=== PATIENT | male | born 1970 | race Caucasian/White ===

== ENCOUNTER 2024-12-22 13:49 | Emergency (ER) | payer OTHER ==
--- NOTE | 2024-12-22 15:19 | RAD REPORT ---
EXAM: Right upper quadrant ultrasound. CLINICAL HISTORY: Abdominal pain COMPARISON: None FINDINGS: A gallstone is not seen. Gallbladder wall not thickened. Biliary tree normal caliber IMPRESSION: No significant abnormalities displayed
[2024-12-22 15:26] LABS: Absolute Eosinophils 0.1 K/uL (0-0.5); Absolute Lymphocytes (CBC) 1.5 K/uL (0.7-4.9); Absolute Monocytes 0.7 K/uL (0.1-1.3); Absolute Neutrophil 3.7 K/uL (1.8-8.0); Albumin 3.6 g/dL (3.4-5.0); Albumin/Globulin Ratio 0.9 (1.1-1.8); Anion Gap 7.6 mEq/L (5.0-15.0); Basophils % 0.4 % (0-1.3); Bilirubin Total 0.6 mg/dL (0.2-1.0); Eosinophils % 1.4 % (0-4.4); Globulin 3.9 g/dL (2.3-3.5); Hematocrit 47.9 % (39.6-49.0); Hemoglobin 16.8 g/dL (13.6-17.9); Lymphocytes % 25.7 % (15.3-44.8); MCHC 35.1 g/dL (32.0-36.0); MCV 88.3 fL (80-100); MPV 7.9 fL (7.6-11.3); Monocytes % 11.1 % (3.3-12.3); Neutrophils % 61.4 % (41.7-73.7); Nucleated Red Blood Cells % 0.1 % (0-0); Platelets 196 thou/uL (152-406); Protein, Total 7.5 g/dL (6.4-8.2); RBC Red Blood Cell Count 5.42 M/uL (4.33-5.43); Red Cell Distribution Width 14.1 % (12.1-15.2)
[2024-12-22 15:30] LABS: Potassium 4.6 mEq/L (3.5-5.1)
[2024-12-22] MEDS ORDERED: MAGNES/ALUMIN/SIMET 30ML UCUP ONE (16:46)
[2024-12-22] MEDS ORDERED: LIDOCAINE VISCOUS 2% 10ML ORAL SOLN ONE (16:46)
[2024-12-22] MEDS ORDERED: FAMOTIDINE 20 MG/2 ML VIAL IV ONE (16:47)
--- NOTE | 2024-12-22 16:48 | ER ---
Nurse's Notes [facility] Name: Enrike Whitaker Jr Age: 54 yrs Sex: Male : 1970 Arrival Date: 12/22/2024 Time: 13:49 Bed 25 Private MD: Diagnosis: Acute gastritis without bleeding;Esophagitis, unspecified Presentation: 12/22 14:26 Chief complaint: Nausea and upper abdominal pain that is worse after eating x months. hb Coronavirus screen: At this time, the client does not indicate any symptoms associated with coronavirus-19. Ebola Screen: No symptoms or risks identified at this time. Initial Sepsis Screen: Does the patient meet any 2 criteria? No. Patient's initial sepsis screen is negative. Does the patient have a suspected source of infection? No. Patient's initial sepsis screen is negative. Risk Assessment: Do you want to hurt yourself or someone else? Patient reports no desire to harm self or others. Onset of symptoms was October 2024. 14:26 Method Of Arrival: Ambulatory hb 14:26 Acuity: OCTAVIO 3 hb Historical: - Allergies: 14:26 No Known Allergies; hb - Immunization history:: Adult Immunizations up to date. - Infectious Disease History:: Denies. - Family history:: not pertinent. - Hospitalizations: : No recent hospitalization is reported. Screenin:57 [facility] ED Fall Risk Assessment (Adult) History of falling in the last 3 months, jb4 including since admission No falls in past 3 months (0 pts) Confusion or Disorientation No (0 pts) Intoxicated or Sedated No (0 pts) Impaired Gait No (0 pts) Mobility Assist Device Used No (0 pt) Altered Elimination No (0 pt) Score/Fall Risk Level 0 - 2 = Low Risk Oriented to surroundings, Maintained a safe environment. Abuse screen: Denies threats or abuse. Nutritional screening: No deficits noted. Tuberculosis screening: No symptoms or risk factors identified. Assessment: 16:57 General: Appears in no apparent distress. comfortable, Behavior is calm, cooperative, jb4 appropriate for age. Pain: Complains of pain in abdomen Pain does not radiate. Pain currently is 6 out of 10 on a pain scale. Neuro: Level of Consciousness is awake, alert, obeys commands, Oriented to person, place, time, situation. Cardiovascular: Patient's skin is warm and dry. Respiratory: Airway is patent Respiratory effort is even, unlabored, Respiratory pattern is regular, symmetrical. GI: Abdomen is round non-distended, Reports lower abdominal pain, upper abdominal pain. : No signs and/or symptoms were reported regarding the genitourinary system. Derm: Skin is intact, Skin is pink, warm \T\ dry. Musculoskeletal: Circulation, motion, and sensation intact. Range of motion: intact in all extremities. Vital Signs: 14:27 BP 180 / 108; Pulse 106; Resp 18; Temp 97.7; Pulse Ox 100% on R/A; Weight 127.01 kg; hb Height 5 ft. 11 in. ; Pain 10/10; 14:27 Body Mass Index 39.05 (127.01 kg, 180.34 cm) hb 14:27 Pain Scale: Adult hb ED Course: 13:54 Patient arrived in ED. al6 14:00 Feroz Borrego MD is Attending Physician. rn 14:26 Triage completed. hb 14:28 Arm band placed on. hb 14:51 US Abdomen Limited In Process Unspecified. EDMS 15:03 Initial lab(s) drawn, by me, sent to lab. Inserted saline lock: 20 gauge in left wrist, zm using aseptic technique. Blood collected. Flushed with 10 mL NS. 15:03 CBC with Diff Sent. zm 15:03 CMP Sent. zm 15:03 Lipase Sent. zm 16:57 Patient has correct armband on for positive identification. Bed in low position. Call jb4 light in reach. Side rails up X 1. Provided Education on: discharge instructions.. 16:57 No provider procedures requiring assistance completed. IV discontinued, intact, jb4 bleeding controlled, No redness/swelling at site. Pressure dressing applied. Administered Medications: 16:59 Drug: GI Cocktail without - (Maalox PO 30 ml, Lidocaine Mucous Membrane 2 % 15 jb4 ml) PO once Route: PO; 16:59 Follow up: Response: Medication administered at discharge. jb4 16:59 Drug: Famotidine IVP 20 mg IVP once; dilute with 10 mL 0.9% NaCl; give over 2 minutes jb4 Route: IVP; Site: left hand; 16:59 Follow up: Response: Medication administered at discharge. jb4 Medication: 16:57 VIS not applicable for this client. jb4 Outcome: 16:47 Discharge ordered by . rn 16:57 Discharged to home ambulatory, jb4 16:57 Condition: stable 16:57 Discharge instructions given to patient, Instructed on discharge instructions, follow up and referral plans. medication usage, Demonstrated understanding of instructions, follow-up care, medications, Prescriptions given X 1, 16:59 Patient left the ED. jb4 Signatures: Dispatcher [employer] EDMS Feroz Borrego MD MD rn Baxter, Heather, RN RN hb Bryson, James, RN RN jb4 Aracelis Nash Alissa al6 Corrections: (The following items were deleted from the chart) 14:30 14:27 BP 180 / 108; Pulse 106bpm; Resp 18bpm; Pulse Ox 100% RA; Temp 97.7F; hb hb
--- NOTE | 2024-12-22 16:48 | EDPHYS ---
Physician Documentation [facility] Name: Enrike Whitaker Jr Age: 54 yrs Sex: Male : 1970 Arrival Date: 12/22/2024 Time: 13:49 Bed 25 Private MD: ED Physician Feroz Borrego HPI: 12/22 15:43 This 54 yrs old Male presents to ER via Ambulatory with complaints of Abdominal Pain. rn 15:43 The patient presents with abdominal pain in the epigastric area. Onset: The rn symptoms/episode began/occurred 2 month(s) ago. The symptoms do not radiate. Associated signs and symptoms: Pertinent positives: nausea, Pertinent negatives: blood in stools, chest pain, fever, shortness of breath, vomiting, vomiting blood. The symptoms are described as achy, burning. Modifying factors: The symptoms are alleviated by nothing, the symptoms are aggravated by food. Severity of pain: At its worst the pain was mild in the emergency department the pain is unchanged. The patient has experienced similar episodes in the past. Patient reports 2 months of upper epigastric abdominal pain. Recently saw GI with upper scope that showed gastritis and esophagitis. GI ordered outpatient ultrasound of gallbladder and patient was not able to obtain due to insurance issues. Came to hospital here to try and get ultrasound completed and they directed him to the emergency room. Denies fever or chills. Reports pain in abdomen about an hour after eating. No vomiting or hematemesis. No blood in stool.. Historical: - Allergies: 14:26 No Known Allergies; hb - Immunization history:: Adult Immunizations up to date. - Infectious Disease History:: Denies. - Family history:: not pertinent. - Hospitalizations: : No recent hospitalization is reported. ROS: 15:43 Constitutional: Negative for fever, chills, and weight loss, Cardiovascular: Negative rn for chest pain, palpitations, and edema, Respiratory: Negative for shortness of breath, cough, wheezing, and pleuritic chest pain, Abdomen/GI: Positive for abdominal pain with nausea MS/Extremity: Negative for injury and deformity, Skin: Negative for injury, rash, and discoloration, Neuro: Negative for headache, weakness, numbness, tingling, and seizure, Exam: 15:43 Constitutional: This is a well developed, well nourished patient who is awake, alert, rn and in no acute distress. Cardiovascular: Regular rate and rhythm. No pulse deficits. Abdomen/GI: Soft, mild epigastric tenderness. No rebound or guarding. Negative Alvarez. No right upper quadrant tenderness Vital Signs: 14:27 BP 180 / 108; Pulse 106; Resp 18; Temp 97.7; Pulse Ox 100% on R/A; Weight 127.01 kg; hb Height 5 ft. 11 in. ; Pain 10/10; 14:27 Body Mass Index 39.05 (127.01 kg, 180.34 cm) hb 14:27 Pain Scale: Adult hb MDM: 14:00 Medical Screening Exam initiated rn 16:46 Differential diagnosis: cholecystitis, Cholelithiasis, gastritis, gastroesophageal rn reflux disease, non-specific abd pain, pancreatitis, Peptic Ulcer Disease. Data reviewed: vital signs, nurses notes, lab test result(s), radiologic studies, ultrasound, and as a result, I will discharge patient. Counseling: I had a detailed discussion with the patient and/or guardian regarding the historical points, exam findings, and any diagnostic results supporting the discharge/admit diagnosis, lab results, radiology results, the need for outpatient follow up, to return to the emergency department if symptoms worsen or persist or if there are any questions or concerns that arise at home. Response to treatment: the patient's symptoms have mildly improved after treatment, and as a result, I will discharge patient. Special discussion: Based on the patient's Hx, exam, and Dx evaluation, there is no indication for emergent surgery or inpatient Tx. It is understood by the patient/guardian that if the Sx's persist or worsen they need to return immediately for re-evaluation. I discussed with the patient/guardian in detail that at this point there is no indication for admission to the hospital. It is understood, however, that if the symptoms persist or worsen the patient needs to return immediately for re-evaluation. Based on the history and exam findings, there is no indication for further emergent testing or inpatient evaluation. I discussed with the patient/guardian the need to see the dewaxer for further evaluation of the symptoms. ED course: Ultrasound negative for cholecystitis or cholelithiasis. No acute findings and blood work. Already saw GI with EGD that showed gastritis/esophagitis. Will discharge home with Protonix and GI follow-up. Also spoke to patient at length regarding GERD, risk of cancer, and dietary modifications to improve symptoms.. 12/22 14:31 Order name: CBC with Diff; Complete Time: 15:42 rn 12/22 14:31 Order name: CMP; Complete Time: 15:42 rn 12/22 14:31 Order name: Lipase; Complete Time: 15:42 rn 12/22 14:31 Order name: US Abdomen Limited; Complete Time: 15:42 rn 12/22 14:31 Order name: IV Saline Lock; Complete Time: 15:03 rn 12/22 14:31 Order name: Labs collected and sent; Complete Time: 15:03 rn Administered Medications: 16:59 Drug: GI Cocktail without - (Maalox PO 30 ml, Lidocaine Mucous Membrane 2 % 15 jb4 ml) PO once Route: PO; 16:59 Follow up: Response: Medication administered at discharge. jb4 16:59 Drug: Famotidine IVP 20 mg IVP once; dilute with 10 mL 0.9% NaCl; give over 2 minutes jb4 Route: IVP; Site: left hand; 16:59 Follow up: Response: Medication administered at discharge. jb4 Disposition Summary: 12/22/24 16:47 Discharge Ordered Notes: Location: Home rn Problem: new rn Symptoms: have improved rn Condition: Stable rn Diagnosis - Acute gastritis without bleeding rn - Esophagitis, unspecified rn Followup: rn - With: Private Physician - When: As needed - Reason: Recheck today's complaints, Re-evaluation by your physician Discharge Instructions: - Discharge Summary Sheet rn - Esophagitis rn - Gastritis, Adult rn Forms: - Medication Reconciliation Form rn - Antibiotic yarn dyer - Prescription Opioid Use rn - Patient Portal Instructions rn - Leadership Thank You Letter rn Prescriptions: - Protonix 40 mg Oral Tablet - take 1 tablet ORAL route once daily; 30 tablet; Refills: 0, Product Selection rn Permitted Signatures: Dispatcher [employer] EDMS Feroz Borrego MD MD rn Baxter, Heather, RN RN hb Bryson, James, RN RN jb4 Corrections: (The following items were deleted from the chart) 14:32 14:32 CBC+H.LAB.BRZ ordered. EDMS EDMS 14:32 14:32 COMPREHENSIVE METABOLIC PANEL+C.LAB.BRZ ordered. EDMS EDMS 14:32 14:32 LIPASE+C.LAB.BRZ ordered. EDMS EDMS 14:32 14:32 Abdomen Limited+US.RAD.BRZ ordered. EDMS EDMS
[2024-12-22 17:47] VITALS: BP 180/108; TEMP 97.7; O2SAT 100
== END 2024-12-22 16:59 | disposition home or self-care (01) ==
LOC: ER 13:49
DX: K29.00 Acute gastritis without bleeding (principal); K20.90 Esophagitis, unspecified without bleeding
CPT/HCPCS: 36415; 76705; 80053; 83690; 85025; 96374; 99284

== ENCOUNTER 2025-03-02 14:16 | Emergency (ER) | payer OTHER ==
--- OUTSIDE RECORDS SUMMARY | 2025-03-02 14:21 | XMS REPORT | Continuity of Care Document ---
Author Name Unknown Address [address] [facility] [address] [place] [address] [facility] Address [address] [facility] [address] [place] [address] Care Team Providers Care Commissioned Police Officer Name Role Phone NIKKIMARIN Primary Care Physician Unavailab LUIS ALFREDO Kumari Attending Clinician UnavailYARI Seo Attending Clinician Unavailable Yari Soliman NP Attending Clinician [phone] JOAN CHE Attending Clinician Unavailab JOAN Oneil Attending Clinician Unavailab Joan Oneil DO Attending Clinician [phone] JAYLA THOMAS Attending Clinician Unavailable JAYLA THOMAS Attending Clinician Unavailable BERNA CASTAÑEDA Attending Clinician Unavailab Berna Graham DO Attending Clinician [phone] ADRI BACAHKelli Attending Clinician UnavailAdri Irizarry MD K.HKelli Attending Clinician + [phone] Pob, [facility] Main Attending Clinician Unavaildoretha bañuelos Doctor Unassigned, [place] Attending Clinician U CHARLES Riuz Attending Clinician Unavailable Charles Kaur NP Attending Clinician [phone] Brianna Rothman Attending Clinician [phone] BRIANNA ANTONIO Attending Clinician Unavailable YARI SOLIMAN Admitting Clinician Unavailable JAYLA THOMAS Admitting Clinician Unavailable BERNA CASTAÑEDA Admitting Clinician Unavailab ADRI CesarH. Admitting Clinician CHARLES Garcia Admitting Clinician Hernando Payers Payer Name Policy Type Policy Number Effective Date Expirati on Date Source [facility] ROD [id number] 2024 00:00:00 [facility] Isabel VELASCO [id number] 2024 00:00:00 [facility] TRAE [id number] 2022 00:00:00 Problems Condition Name Condition Details Condition Category Status Onset Date Resolution Date Last Treatment Date Treating Clinician Comments Source No known active problems No known active problems Disease [facility] Allergies, Adverse Reactions, Alerts Allergy Name Allergy Type Status Severity Reaction(s) Onset Date Inactive Date Treating Clinician Comments Source NO KNOWN ALLERGIE S Drug Class Active [facility] Social History Social Habit Start Date Stop Date Quantity Comments Source Gender identity [facility] Exposure to SARS-CoV-2 (event) 2022-11-27 00:00:00 2022-12-07 19:33:00 Not sure [facility] Sex assigned at 1970 00:00:00 1970 00:00:00 [facility] Smoking Status Start Date Stop Date Source Tobacco smoking consumption unknown [facility] Medications Ordered Medication Name Filled Medication Name Start Date Stop Date Current Medication? Ordering Clinician Indication Dosage Frequency Signature (SIG) Comments Components Source iopamidol (ISOVUE 370-500 mL) injection 100 mL 11-24 00:00: 00 11-24 00:00 :00 No [id number] 100mL 100 mL, Intravenou s, ONCE, 1 dose, On 11/23/24 at 1800, Routine [facility] sodium chloride (NS) injection 5 mL 11-23 21:25: 33 Yes 5mL 5 mL, Intravenou s, PRN, Starting on 11/23/24 at 1525, Until Discontinu ed, Routine, IV line flushing [facility] dicyclomine (BENTYL) injection 20 mg 04-06 07:00: 00 04-06 06:09 :00 No 20mg 20 mg, Intramuscu lar, ONCE NOW, 1 dose, On 04/06/24 at 0200, ROSALIE [facility] iopamidol (ISOVUE 370-500 mL) injection 80 mL 04-06 06:00: 00 04-06 06:00 :00 No [id number] 80mL 80 mL, Intravenou s, ONCE, 1 dose, On 04/06/24 at 0100, Routine [facility] ketorolac (TORADOL) injection 30 mg 04-06 04:45: 00 04-06 03:45 :00 No 30mg 30 mg, Slow IV Push, ONCE, 1 dose, On 04/05/24 at 2345, Routine [facility] ondansetron (ZOFRAN (PF)) injection 4 mg 04-06 03:45: 00 04-06 03:45 :00 No 4mg 4 mg, Slow IV Push, ONCE, 1 dose, On 04/05/24 at 2245, ROSALIE [facility] dicyclomine 20 mg tablet 04-06 00:00: 00 Yes [id number] 20mg Take 1 tablet by mouth every 6 (six) hours as needed for Abdominal pain. [facility] traMADoL (ULTRAM) 50 mg tablet 04-06 00:00: 00 Yes [id number] 50mg Take 1 tablet by mouth every 6 (six) hours as needed for Pain (scale 7-10). Indication s: acute pain [facility] ondansetron (ZOFRAN) 4 mg tablet 04-06 00:00: 00 Yes [id number] 4mg Take 1 tablet by mouth every 8 (eight) hours as needed for Nausea and Vomiting (N/V). [facility] maalox:diph enhydrAMINE :lidocaine 2 % viscous 1:1:1 (FIRST-MOUT HWASH BLM) oral suspension 15 mL 12-20 18:15: 00 12-20 18:31 :00 No 15mL 15 mL, Oral, ONCE, 1 dose, On Sun12/21/23 at 1215, Routine [facility] levoFLOXaci n (LEVAQUIN) tablet 500 mg 06-20 07:00: 00 06-20 07:03 :00 No 500mg 500 mg, Oral, ONCE, 1 dose, On Sun06/20/23 at 0200, ROSALIE
Re ason for Anti-Infec tive: Documented Infection< br>Documen deon Infection Site: Abdominal< br>Duratio n of Therapy: 7 days [facility] metroNIDAZO LE (FLAGYL) tablet 500 mg 06-20 07:00: 00 06-20 07:03 :00 No 500mg 500 mg, Oral, ONCE, 1 dose, On Sun06/20/23 at 0200, ROSALIE
Re ason for Anti-Infec tive: Documented Infection< br>Documen deon Infection Site: Abdominal< br>Duratio n of Therapy: 7 days [facility] NaCl 0.9% (NS) IV infusion 1,000 mL 06-20 06:00: 00 Yes 1000mL at 125 mL/hr, IV Infusion, CONTINUOUS , Starting on Sun06/20/23 at 0100, Until Discontinu ed, Routine [facility] ondansetron (ZOFRAN (PF)) injection 4 mg 06-20 05:00: 00 06-20 05:13 :00 No 4mg 4 mg, Slow IV Push, ONCE, 1 dose, On Sun06/20/23 at 0000, ROSALIE [facility] morpHINE (4 mg/mL) injection 4 mg 06-20 04:56: 11 Yes 4mg 4 mg, Slow IV Push, Q4HPRN, Starting on Sun06/19/23 at 2356, Until Discontinu ed, Routine, Pain (scale 7-10) [facility] levoFLOXaci n 500 mg tablet 06-20 00:00: 00 06-28 04:59 :00 No [id number] 500mg Take 1 tablet by mouth every 24 (twenty-fo ur) hours for 7 days. [facility] metroNIDAZO LE 500 mg tablet 06-20 00:00: 00 06-28 04:59 :00 No [id number] 500mg Take 1 tablet by mouth every 8 (eight) hours for 7 days. [facility] amLODIPine 5 mg tablet 11-17 00:00: 00 11-23 00:00 :00 No [id number] 5mg Take 1 tablet by mouth in the morning. [facility] iopamidol (ISOVUE 370-500 mL) injection 120 mL 06-16 06:15: 00 06-16 06:15 :00 No [id number] 120mL 120 mL, Intravenou s, ONCE, 1 dose, On Sun06/16/22 at 0115, Routine [facility] labetaloL (NORMODYNE) injection 20 mg 06-16 03:45: 00 06-16 03:38 :00 No 20mg 20 mg, Slow IV Push, ONCE, 1 dose, On Sun06/15/22 at 2245, ROSALIE [facility] NaCl 0.9% (NS) injection 5 mL 06-16 03:01: 57 Yes 5mL 5 mL, Slow IV Push, PRN - SEE INSTRUCTIO NS, Starting on Sun06/15/22 at 2201, Until Discontinu ed, 10 mL [facility] amLODIPine 2.5 mg tablet 06-16 00:00: 00 11-17 00:00 :00 No [id number] 2.5mg Take 1 tablet by mouth at bedtime. [facility] ondansetron (ZOFRAN (PF)) injection 4 mg 04-25 21:00: 00 04-25 20:10 :00 No 4mg 4 mg, Slow IV Push, ONCE, 1 dose, Sun04/25/21 at 1600, ROSALIE [facility] ketorolac (TORADOL) injection 30 mg 04-25 21:00: 00 04-25 20:10 :00 No 30mg 30 mg, Slow IV Push, ONCE, 1 dose, Sun04/25/21 at 1600, ROSALIE
Fa culty member approving Restricted medication : EMERGENCY ROOM, [facility] NaCl 0.9% (NS) bolus infusion 1,000 mL 04-25 20:00: 00 04-25 21:33 :00 No 1000mL at 999 mL/hr, 1,000 mL, IV Infusion, ONCE, 1 dose, 04/25/21 at 1500, ROSALIE [facility] meclizine 25 mg tablet 04-25 00:00: 00 06-16 00:00 :00 No [id number] 25mg Take 1 tablet by mouth 3 (three) times daily as needed for Dizziness. [facility] Vital Signs Vital Name Observation Time Observation Value Comments S ource Systolic blood pressure 2024-11-24 00:13:19 145 mm[Hg] [facility] Diastolic blood pressure 2024-11-24 00:13:19 104 mm[Hg] [facility] Heart rate 2024-11-24 00:13:19 91 /min [facility] Body temperature 2024-11-24 00:13:19 36.67 Pilar [facility] Respiratory rate 2024-11-24 00:13:19 16 /min [facility] Oxygen saturation in Arterial blood by Pulse oximetry 2024-11-24 00:13:19 94 /min [facility] Body height 2024-11-23 21:27:00 180.3 cm [facility] Body weight 2024-11-23 21:27:00 108.863 kg [facility] BMI 2024-11-23 21:27:00 33.47 kg/m2 [facility] Systolic blood pressure 2024-09-06 15:00:00 137 mm[Hg] [facility] Diastolic blood pressure 2024-09-06 15:00:00 97 mm[Hg] [facility] Heart rate 2024-09-06 15:00:00 72 /min [facility] Respiratory rate 2024-09-06 15:00:00 19 /min [facility] Oxygen saturation in Arterial blood by Pulse oximetry 2024-09-06 15:00:00 90 /min [facility] Body temperature 2024-09-06 12:08:36 36.5 Pilar [facility] Body height 2024-09-06 12:07:00 180.3 cm [facility] Body weight 2024-09-06 12:07:00 108.863 kg [facility] BMI 2024-09-06 12:07:00 33.47 kg/m2 [facility] Systolic blood pressure 2024-04-06 06:31:00 129 mm[Hg] [facility] Diastolic blood pressure 2024-04-06 06:31:00 102 mm[Hg] [facility] Heart rate 2024-04-06 06:31:00 71 /[facility] Body temperature 2024-04-06 06:31:00 36.22 Pilar [facility] Respiratory rate 2024-04-06 06:31:00 15 /min [facility] Oxygen saturation in Arterial blood by Pulse oximetry 2024-04-06 06:31:00 96 /min [facility] Body height 2024-04-06 03:32:00 180.3 cm [facility] Body weight 2024-04-06 03:32:00 113.399 kg [facility] acute [facility] BMI 2024-04-06 03:32:00 34.87 kg/m2 [facility] Systolic blood pressure 2023-12-21 18:03:00 124 mm[Hg] [facility] Diastolic blood pressure 2023-12-21 18:03:00 101 mm[Hg] [facility] Heart rate 2023-12-21 18:03:00 58 /min [facility] Respiratory rate 2023-12-21 18:03:00 11 /min [facility] Oxygen saturation in Arterial blood by Pulse oximetry 2023-12-21 18:03:00 97 /min [facility] Body temperature 2023-12-21 16:07:00 36.72 Pilar [facility] Body height 2023-12-21 16:07:00 180.3 cm [facility] Body weight 2023-12-21 16:07:00 113.399 kg [facility] acute [facility] BMI 2023-12-21 16:07:00 34.87 kg/m2 [facility] Systolic blood pressure 2023-06-20 07:00:00 167 mm[Hg] [facility] Diastolic blood pressure 2023-06-20 07:00:00 91 mm[Hg] [facility] Heart rate 2023-06-20 07:00:00 92 /min [facility] Respiratory rate 2023-06-20 07:00:00 15 /min [facility] Oxygen saturation in Arterial blood by Pulse oximetry 2023-06-20 07:00:00 93 /min [facility] Body temperature 2023-06-20 00:50:00 37.5 Pilar [facility] Body height 2023-06-20 00:50:00 181.6 cm [facility] Body weight 2023-06-20 00:50:00 113.626 kg [facility] BMI 2023-06-20 00:50:00 34.45 kg/m2 [facility] Systolic blood pressure 2022-12-08 01:30:00 144 mm[Hg] [facility] Diastolic blood pressure 2022-12-08 01:30:00 106 mm[Hg] [facility] Heart rate 2022-12-08 01:30:00 100 /min [facility] Body temperature 2022-12-08 01:30:00 36.61 Pilar [facility] Respiratory rate 2022-12-08 01:30:00 16 /min [facility] Body height 2022-12-08 01:30:00 180.3 cm [facility] Body weight 2022-12-08 01:30:00 106.595 kg [facility] acute [facility] BMI 2022-12-08 01:30:00 32.78 kg/m2 [facility] Oxygen saturation in Arterial blood by Pulse oximetry 2022-12-08 01:30:00 97 /min [facility] Systolic blood pressure 2022-11-17 20:19:00 171 mm[Hg] [facility] Diastolic blood pressure 2022-11-17 20:19:00 114 mm[Hg] [facility] Heart rate 2022-11-17 20:19:00 91 /min [facility] Body height 2022-11-17 20:19:00 180.3 cm [facility] Body weight 2022-11-17 20:19:00 113.581 kg [facility] BMI 2022-11-17 20:19:00 34.92 kg/m2 [facility] Oxygen saturation in Arterial blood by Pulse oximetry 2022-11-17 20:19:00 95 /min [facility] Body temperature 2022-11-17 20:15:00 37.06 Pilar [facility] Systolic blood pressure 2022-06-16 07:00:00 141 mm[Hg] [facility] Diastolic blood pressure 2022-06-16 07:00:00 100 mm[Hg] [facility] Heart rate 2022-06-16 07:00:00 76 /min [facility] Respiratory rate 2022-06-16 07:00:00 15 /min [facility] Oxygen saturation in Arterial blood by Pulse oximetry 2022-06-16 07:00:00 97 /min [facility] Body temperature 2022-06-16 02:52:00 36.17 Pilar [facility] Body height 2022-06-16 02:52:00 180.3 cm [facility] Body weight 2022-06-16 02:52:00 113.399 kg [facility] acute [facility] BMI 2022-06-16 02:52:00 34.87 kg/m2 [facility] Systolic blood pressure 2021-04-25 21:55:00 132 mm[Hg] [facility] Diastolic blood pressure 2021-04-25 21:55:00 88 mm[Hg] [facility] Heart rate 2021-04-25 21:55:00 58 /min [facility] Respiratory rate 2021-04-25 21:55:00 20 /min [facility] Oxygen saturation in Arterial blood by Pulse oximetry 2021-04-25 21:55:00 97 /min [place] [facility] Body temperature 2021-04-25 18:41:00 35.89 Pilar [facility] Body height 2021-04-25 18:41:00 180.3 cm [facility] Body weight 2021-04-25 18:41:00 108.863 kg [facility] BMI 2021-04-25 18:41:00 33.47 kg/m2 [facility] Procedures Procedure Date / Time Performed Performing Clinician Source CT ABDOMEN PELVIS W CONTRAST 2024-11-23 23:10:43 Yari Soliman [facility] LIPASE 2024-11-23 21:55:00 [facility] COMP. METABOLIC PANEL ([id number]) 2024-11-23 21:55:00 Yari Soliman [facility] CBC WITH DIFF 2024-11-23 21:55:00 Yari Soliman [facility] URINALYSIS 2024-11-23 21:55:00 Rozina Solimanherine [facility] EKG-12 LEAD 2024-09-06 15:28:02 Jayla Thomas [facility] TROPONIN I 2024-09-06 14:40:00 [facility] 2024-09-06 12:39:00 Jayla Thomas [facility] TROPONIN I 2024-09-06 12:39:00 Jayla Thomas [facility] COMP. METABOLIC PANEL ([id number]) 2024-09-06 12:39:00 Jayla Thomas [facility] CBC WITH DIFF 2024-09-06 12:39:00 Jayla Thomas [facility] CT ABDOMEN PELVIS W CONTRAST 2024-04-06 05:08:44 Jayla Thomas [facility] URINALYSIS 2024-04-06 03:41:00 Jayla Thomas [facility] LIPASE 2024-04-06 03:40:00 Jayla Thomas [facility] COMP. METABOLIC PANEL ([id number]) 2024-04-06 03:40:00 Jayla Thomas [facility] CBC WITH DIFF 2024-04-06 03:40:00 Jayla Thomas [facility] TROPONIN I 2023-12-21 16:38:00 Berna Castañeda [facility] BASIC METABOLIC PANEL (NA, K, CL, CO2, GLUCOSE, BUN, CREATININE, CA) 2023-12-21 16:38:00 Berna Castañeda [facility] CBC WITH DIFF 2023-12-21 16:38:00 Berna Castañeda [facility] N-TERMINAL PRO-BNP 2023-12-21 16:38:00 Dasha Castañeda [facility] CONSENT/REFUSAL FOR DIAGNOSIS AND TREATMENT 2023-12-21 16:06:27 Doctor Unassigned, [place] [facility] CT ABDOMEN PELVIS WO CONTRAST 2023-06-20 05:21:17 [facility] (IMMUNOASSAY) - COMPREHENSIVE DRUG SCREEN 2023-06-20 04:56:00 Yari Soliman [facility] LIPASE 2023-06-20 03:36:00 Yari Soliman [facility] COMP. METABOLIC PANEL ([id number]) 2023-06-20 03:36:00 Yari Soliman [facility] CBC WITH DIFF 2023-06-20 03:36:00 Yari Soliman [facility] URINALYSIS 2023-06-20 03:36:00 [facility] CONSENT/REFUSAL FOR DIAGNOSIS AND TREATMENT 2023-06-20 00:35:00 Doctor Unassigned, [place] [facility] NOTICE OF PRIVACY PRACTICES 2022-12-08 01:29:13 Doctor Unassigned, [place] [facility] CONSENT/REFUSAL FOR DIAGNOSIS AND TREATMENT 2022-12-08 01:23:17 Doctor Unassigned, [place] [facility] ASSIGNMENT OF BENEFITS 2022-11-17 20:03:32 Docto r Unassigned, [place] [facility] EKG-12 LEAD 2022-06-16 07:18:43 Charles Kaur [facility] XR CHEST 1 VW 2022-06-16 06:30:59 Charles Kaur [facility] TROPONIN I 2022-06-16 06:17:00 Charles Kaur [facility] CT STROKE ANGIOGRAM HEAD 2022-06-16 05:18:33 Eva Kaur [facility] CT STROKE ANGIOGRAM NECK 2022-06-16 05:18:33 Eva Kaur [facility] CT STROKE PERFUSION W CONTRAST 2022-06-16 05:18:33 Charles Kaur [facility] URINALYSIS 2022-06-16 04:19:00 Charles Kaur [facility] URINE DRUG (IMMUNOASSAY) - COMPREHENSIVE DRUG SCREEN W/O REFLEX 2022-06-16 04:19:00 Charles Kaur [facility] COVID-19 (ID NOW RAPID TESTING) 2022-06-16 03:35:00 Charles Kaur [facility] CT STROKE HEAD WO CONTRAST 2022-06-16 03:25:20 Charles Kaur [facility] POCT GLUCOSE (AUTOMATED) 2022-06-16 03:13:00 Eva Kaur [facility] PROTHROMBIN TIME / INR 2022-06-16 03:12:00 Terese Kaur ala [facility] ACTIVATED PARTIAL THRMPLAS BRAYDEN 2022-06-16 03:12:00 Charles Kaur [facility] TROPONIN I 2022-06-16 03:12:00 Charles Kaur [facility] BASIC METABOLIC PANEL (NA, K, CL, CO2, GLUCOSE, BUN, CREATININE, CA) 2022-06-16 03:12:00 Charles Kaur [facility] CBC WITHOUT DIFF 2022-06-16 03:12:00 Charles Kaur [facility] NOTICE OF PRIVACY PRACTICES 2022-06-16 02:52:01 Doctor Unassigned, [place] [facility] CONSENT/REFUSAL FOR DIAGNOSIS AND TREATMENT 2022-06-16 02:45:50 Doctor Unassigned, [place] [facility] URINALYSIS 2021-04-25 21:33:00 Brianna Antonio [facility] TROPONIN I 2021-04-25 20:48:00 Brianna Antonio [facility] HEPATIC FUNCTION PANEL ([id number]) (ALB,T.PRO,BILI T,BU/BC,ALT,AST,ALK PHOS) 2021-04-25 20:48:00 Brianna Antonio [facility] BASIC METABOLIC PANEL (NA, K, CL, CO2, GLUCOSE, BUN, CREATININE, CA) 2021-04-25 20:48:00 Brianna Antonio [facility] N-TERMINAL PRO-BNP 2021-04-25 20:48:00 Jessy Antonio [facility] CT ABDOMEN PELVIS WO CONTRAST 2021-04-25 20:02:48 Brianna Antonio [facility] CBC WITH DIFF 2021-04-25 19:58:00 Brianna Antonio [facility] Encounters Start Date/Time End Date/Time Encounter Type Admission Type Attending [facility] Emergency Department Facility Care Department Encounter ID Source 2024-12-23 00:00:00 2024-12-23 00:00:00 Outpatient [facility]FR[facility]O [facility] [id number] [facility] 2024-11-23 15:33:00 2024-11-23 18:22:00 Emergency X YARI SOLIMAN [facility] ERT [id number] [facility] 2024-11-23 15:33:00 2024-11-23 18:22:00 Emergency Yari Soliman [facility] [id number] [facility] 2024-09-06 06:04:00 2024-09-06 10:04:00 Emergency X JOAN CHE YANEJOAN [facility] ERT [id number] [facility] 2024-09-06 06:04:00 2024-09-06 10:04:00 Emergency Joan Che [facility] [id number] [facility] 2024-04-05 22:25:00 2024-04-06 01:32:00 Emergency X JAYLA THOMAS WAKILI [facility] ERT [id number] [facility] 2024-04-05 22:25:00 2024-04-06 01:32:00 Emergency Jayla Thomas [facility] [id number] [facility] 2023-12-21 10:09:00 2023-12-21 12:37:00 Emergency X BERNA CASTAÑEDA [facility] ERT [id number] [facility] 2023-12-21 10:09:00 2023-12-21 12:37:00 Emergency Berna Castañeda [facility] [id number] [facility] 2023-06-19 19:52:00 2023-06-20 02:28:00 Emergency YARI ANG [facility] ERT [id number] [facility] 2023-06-19 19:52:00 2023-06-20 02:28:00 Emergency Yari Soliman [facility] [id number] [facility] 2022-12-20 14:00:00 2022-12-20 14:00:00 Outpatient R ADRI [facility] [id number] [facility] 2022-12-07 19:35:00 2022-12-08 00:30:00 Emergency X JAYLA THOMAS [facility] ERT [id number] [facility] 2022-12-07 19:35:00 2022-12-08 00:30:00 Emergency Jayla Thomas [facility] [id number] [facility] [facility] 2022-11-30 00:00:00 2022-11-30 00:00:00 Telephone Adri Baca [facility] [employer] 1.2.840.114 350.1.13.10 4.2.7.2.686 [id number] [id number] [facility] 2022-11-28 15:00:00 2022-11-28 23:59:00 Outpatient R [facility] [id number] [facility] 2022-11-21 00:00:00 2022-11-21 00:00:00 Telephone Adri Baca [facility] [employer] [employer] 1.2.840.114 350.1.13.10 4.2.7.2.686 [id number] [facility] 2022-11-20 00:00:00 2022-11-20 00:00:00 Telephone Adri Baca [facility] [employer] [employer] 1.2.840.114 350.1.13.10 4.2.7.2.686 [id number] [id number] [facility] 2022-11-18 09:45:00 2022-11-18 10:00:00 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7.2.686 [id number] [facility] 2022-11-17 00:00:00 2022-11-17 00:00:00 Orders Only Doctor Unassigned, [place] [facility] 1.2840.114 350.1.13.10 4.2.7.2.686 [id number] 009 [id number] [facility] 2022-06-15 22:10:00 2022-06-16 02:27:00 Emergency X CHARLES [facility] ERT [id number] [facility] 2022-06-15 22:10:00 2022-06-16 02:27:00 Emergency Jamalpili Charles [facility] 1.2840.114 350.1.13.10 4.2.7.2.686 [id number] [id number] [facility] 2022-06-15 00:00:00 2022-06-15 00:00:00 Orders Only Doctor Unassigned, [place] [facility] 1.2840.114 350.1.13.10 4.2.7.2.686 [id number] 009 [id number] [facility] 2021-04-25 13:52:00 2021-04-25 18:39:00 Emergency Brianna [facility] 1.2.840.114 350.1.13.10 4.2.7.2.686 [id number] [facility] 2021-04-25 13:52:00 2021-04-25 13:52:00 Emergency X BRIANNA ANTONIO [facility] ERT [id number] [facility] Results Test Description Test Time Test Comments Results Resul t Comments Source CT Abdomen pelvis w contrast 9 23:41:52 ORDERING PHYSICIAN: YARI SOLIMAN HISTORY: Abdomen pain TECHNIQUE: CT abdomen pelvis with IV contrast. [facility] Technical quality: Diagnostic. ?RL: [id number] COMPARISON: 04/05/[address] FINDINGS: The lung bases are unremarkable. The liver, gallbladder, pancreas, adrenal glands, spleen, kidneys areunremarkable. ? The abdominal aorta is normal in caliber.There is no retroperitoneal adenopathy. There is no distention of bowel, free air, free fluid or focalintra-abdominal collection. Appendix is normal. Colonic diverticulosispresent . No acute diverticulitisNo pelvic adenopathy or significant free fluid is evident. No acute osseous abnormality identified [facility] [id number] 22:24:19* Test Item Value Reference Range Interpretation Comme nts LIPASE (test code = 2939299242) 51 U/L 0-220 Lab Interpretation (test cod e = 60339-8) Normal [facility] with Mxvsnitshccs6183-32-58 22:14:16* Test Item Value Reference Range Interpretation Comme nts WBC (test code = 6690-2) 5.81 4.20-10.70 RBC (test code = 789-8) 4.56 4.26-5.52 HGB (test code = 718-7) 13.9 g/dL 12.2-16.4 HCT (test code = 4544-3) 40.6 % 38.4-49.3 MCV (test code = 787-2) 89.0 fL 81.7-95.6 MCH (test code = 785-6) 30.5 pg 26.1-32.7 MCHC (test code = 786-4) 34.2 g/dL 31.2-35.0 RDW-SD (test code = 47662-9) 41.1 fL 38.5-51.6 RDW-CV (test code = 788-0) 12.5 % 12.1-15.4 PLT (test code = 777-3) 168 150-328 MPV (test code = 18297-1) 10.1 fL 9.8-13.0 NRBC/100 WBC (test code = 8798476115) 0.0 0.0-10.0 NRBC x10^3 (test code = 0179071164) See_Comment [Automated me ssage] The system which generated this result transmitted reference range: 10*3/?L. The reference range was not used to interpret this result as normal/abnormal. GRAN MAT (NEUT) % (test code = 770-8) 66.0 % IMM GRAN % (test code = 2606843730) 0.30 % LYMPH % (test code = 736-9) 24.1 % MONO % (test code = 5905-5) 8.1 % EOS % (test code = 713-8) 1.2 % BASO % (test code = 706-2) 0.3 % GRAN MAT x10^3(ANC) (test code = 7872883839) 3.83 10*3/uL 1.99-6.95 IMM GRAN x10^3 (test code = 6338341646) 0.00-0.06 LYMPH x10^3 (test code = 731-0) 1.40 10*3/uL 1.09-3.23 MONO x10^3 (test code = 742-7) 0.47 10*3/uL 0.36-1.02 EOS x10^3 (test code = 711-2) 0.07 10*3/uL 0.06-0.53 BASO x10^3 (test code = 704-7) 0.01-0.09 [facility]SH[facility]CHR[facility] [id number] 15:24:03* Test Item Value Reference Range Interpretation Comme nts TROPONIN I (test code = 2186687046) 0.005 ng/mL <=0.034 RON (test code = RON) Reference (Normal) Range (defined by the 99th percentile reference limit): <= 0.034 ng/mL Note: Cardiac troponin begins to rise 3-4 hours after the onset of ischemia. Repeat in 4-6 hours if the sample was drawn within 3-4 hours of the onset of the symptom and found normal. Diagnosis of myocardial injury is made with acute changes in cTn concentrations with at least one serial sample above the 99th percentile upper reference limit (URL), taken together with the patient's clinical presentation. Biotin has been reported to cause a negative bias, interpret results relative to patient's use of biotin. Lab Interpretation (test code = 29602-8) Normal [facility] [id number] 13:12:55* Test Item Value Reference Range Interpretation Comme nts TROPONIN I (test code = 2329789536) 0.006 ng/mL <=0.034 RON (test code = RON) Reference (Normal) Range (defined by the 99th percentile reference limit): <= 0.034 ng/mL Note: Cardiac troponin begins to rise 3-4 hours after the onset of ischemia. Repeat in 4-6 hours if the sample was drawn within 3-4 hours of the onset of the symptom and found normal. Diagnosis of myocardial injury is made with acute changes in cTn concentrations with at least one serial sample above the 99th percentile upper reference limit (URL), taken together with the patient's clinical presentation. Biotin has been reported to cause a negative bias, interpret results relative to patient's use of biotin. Lab Interpretation (test code = 98653-8) Normal [facility]COMP. METABOLIC PANEL ([id number])2024-09-06 13:01:56* Test Item Value Reference Range Interpretation Comme nts NA (test code = 4304787637) 139 mmol/L 135-145 K (test code = 8650043232) 3.8 mmol/L 3.5-5.0 CL (test code = 5997787193) 107 mmol/L 98-108 CO2 TOTAL (test code = 4580284652) 28 mmol/L 23-31 AGAP (test code = 5539989909) 4 2-16 BUN (test code = 7336764569) 16 mg/dL 7-23 GLUCOSE (test code = 5883725048) 113 mg/dL 70-110 H CREATININE (test code = 2160-0) 0.83 mg/dL 0.60-1.25 TOTAL BILI (test code = 2669821370) 0.2 mg/dL 0.1-1.1 CALCIUM (test code = 5203112020) 8.3 mg/dL 8.6-10.6 L T PROTEIN (test code = 9412495040) 6.3 g/dL 6.3-8.2 ALBUMIN (test code = 5939648532) 3.9 g/dL 3.5-5.0 ALK PHOS (test code = 1526053416) 69 U/L 34-122 ALTv (test code = 1742-6) 22 U/L 5-50 AST(SGOT) (test code = 4913732070) 26 U/L 13-40 eGFR (test code = 11817-2) 105.3 mL/min/1.73m2 CKD-EPI eGFR (2020). Assuming creatinine has been stable day-to-day for at least three months, the eGFR indicates Category G1 (>= 90 mL/min/1.73 m2) Lab Interpretation (test code = 15574-3) Abnormal [facility] ResourcesLIPASE, [id number] 13:01:15* Test Item Value Reference Range Interpretation Comme nts LIPASE (test code = 8613728125) 96 U/L 0-220 Lab Interpretation (test cod e = 56817-5) Normal [facility]CBC WITH [id number] 12:52:12* Test Item Value Reference Range Interpretation Comme nts WBC (test code = 6690-2) 5.64 4.20-10.70 RBC (test code = 789-8) 4.47 4.26-5.52 HGB (test code = 718-7) 13.5 g/dL 12.2-16.4 HCT (test code = 4544-3) 39.0 % 38.4-49.3 MCV (test code = 787-2) 87.2 fL 81.7-95.6 MCH (test code = 785-6) 30.2 pg 26.1-32.7 MCHC (test code = 786-4) 34.6 g/dL 31.2-35.0 RDW-SD (test code = 17520-2) 40.1 fL 38.5-51.6 RDW-CV (test code = 788-0) 12.5 % 12.1-15.4 PLT (test code = 777-3) 163 150-328 MPV (test code = 56316-1) 9.7 fL 9.8-13.0 L NRBC/100 WBC (test code = 1706052249) 0.0 0.0-10.0 NRBC x10^3 (test code = 3404787267) See_Comment [Automated messa ge] The system which generated this result transmitted reference range: 10*3/?L. The reference range was not used to interpret this result as normal/abnormal. GRAN MAT (NEUT) % (test code = 770-8) 52.4 % IMM GRAN % (test code = 2198225811) 0.00 % LYMPH % (test code = 736-9) 33.2 % MONO % (test code = 5905-5) 11.9 % EOS % (test code = 713-8) 2.1 % BASO % (test code = 706-2) 0.4 % GRAN MAT x10^3(ANC) (test code = 2266673390) 2.96 10*3/uL 1.99-6.95 IMM GRAN x10^3 (test code = 5555840010) 0.00-0.06 LYMPH x10^3 (test code = 731-0) 1.87 10*3/uL 1.09-3.23 MONO x10^3 (test code = 742-7) 0.67 10*3/uL 0.36-1.02 EOS x10^3 (test code = 711-2) 0.12 10*3/uL 0.06-0.53 BASO x10^3 (test code = 704-7) 0.01-0.09 Lab Interpretation (test code = 00848-9) Abnormal [facility] ResourcesCT ABDOMEN PELVIS W [id number] 06:04:26Ordering Physician: JAYLA THOMAS Clinical indication: Acute localized abdominal pain Comparison:April 25, 2021. Technique: CT abdomen and pelvis with intravenous contrast. Thisexamination was performed according to ALARA principles. Technical quality: Adequate Findings: The liver is mildly enlarged a calcified granuloma of the right hepaticlobe is again noted. The gallbladder is contracted. The spleen isborderline in size. Calcified granulomas of the spleen are noted. Thepancreas and adrenalglands are unremarkable. Evaluation of the stomach islimited by lack of distention, but no gross gastric abnormalities areapparent. There are small bilateral renal cortical cysts. There is minimalatherosclerotic calcification, with no aneurysms of the abdomen or pelvisevident. The urinary bladder is unremarkable in appearance. The prostate gland doesnot appear enlarged. There is colonic diverticulosis, withoutdiverticulitis. A normal appendix is identified. There is no small boweldistention. There is no free intraperitoneal fluid or free intraperitonealair. Included lung bases are clear. There are mild degenerative changes ofthe spine. No acute bony abnormalities are evident.[facility]. Metabolic Panel ([id number])2024-04-06 04:28:28* Test Item Value Reference Range Interpretation Comme nts NA (test code = 3714308632) 137 mmol/L 135-145 K (test code = 6675880288) 4.2 mmol/L 3.5-5.0 CL (test code = 0390764001) 105 mmol/L 98-108 CO2 TOTAL (test code = 3147774347) 23 mmol/L 23-31 AGAP (test code = 4946158971) 9 2-16 BUN (test code = 3405886055) 25 mg/dL 7-23 H GLUCOSE (test code = 9840593718) 164 mg/dL 70-110 H CREATININE (test code = 2160-0) 0.86 mg/dL 0.60-1.25 TOTAL BILI (test code = 4037161184) 0.5 mg/dL 0.1-1.1 CALCIUM (test code = 7564092276) 8.9 mg/dL 8.6-10.6 T PROTEIN (test code = 4239458722) 7.0 g/dL 6.3-8.2 ALBUMIN (test code = 6934593797) 4.1 g/dL 3.5-5.0 ALK PHOS (test code = 5001991829) 72 U/L 34-122 ALTv (test code = 1742-6) 26 U/L 5-50 AST(SGOT) (test code = 0550141368) 41 U/L 13-40 H eGFR (test code = 47586-2) 104.2 mL/min/1.73m2 CKD-EPI eGFR (2020). Assuming creatinine has been stable day-to-day for at least three months, the eGFR indicates Category G1 (>= 90 mL/min/1.73 m2) Lab Interpretation (test code = 21728-3) Abnormal [facility] ResourcesLipase2024-06-23 04:27:53* Test Item Value Reference Range Interpretation Comme nts LIPASE (test code = 3594636570) 69 U/L 0-220 Lab Interpretation (test cod e = 57015-2) Normal [facility] ResourcesCbc with Rupc9243-10-22 04:09:30* Test Item Value Reference Range Interpretation Comme nts WBC (test code = 6690-2) 6.24 4.20-10.70 RBC (test code = 789-8) 4.49 4.26-5.52 HGB (test code = 718-7) 13.8 g/dL 12.2-16.4 HCT (test code = 4544-3) 40.5 % 38.4-49.3 MCV (test code = 787-2) 90.2 fL 81.7-95.6 MCH (test code = 785-6) 30.7 pg 26.1-32.7 MCHC (test code = 786-4) 34.1 g/dL 31.2-35.0 RDW-SD (test code = 77031-1) 41.6 fL 38.5-51.6 RDW-CV (test code = 788-0) 12.6 % 12.1-15.4 PLT (test code = 777-3) 156 150-328 MPV (test code = 42216-6) 10.6 fL 9.8-13.0 NRBC/100 WBC (test code = 6903652289) 0.0 0.0-10.0 NRBC x10^3 (test code = 8064473111) See_Comment [Automated me ssage] The system which generated this result transmitted reference range: 10*3/?L. The reference range was not used to interpret this result as normal/abnormal. GRAN MAT (NEUT) % (test code = 770-8) 55.3 % IMM GRAN % (test code = 4475921369) 0.20 % LYMPH % (test code = 736-9) 32.5 % MONO % (test code = 5905-5) 9.1 % EOS % (test code = 713-8) 2.6 % BASO % (test code = 706-2) 0.3 % GRAN MAT x10^3(ANC) (test code = 9251122974) 3.45 10*3/uL 1.99-6.95 IMM GRAN x10^3 (test code = 1810972382) 0.00-0.06 LYMPH x10^3 (test code = 731-0) 2.03 10*3/uL 1.09-3.23 MONO x10^3 (test code = 742-7) 0.57 10*3/uL 0.36-1.02 EOS x10^3 (test code = 711-2) 0.16 10*3/uL 0.06-0.53 BASO x10^3 (test code = 704-7) 0.01-0.09 [facility] ResourcesTroponin [id number] 17:51:20* Test Item Value Reference Range Interpretation Comme nts TROPONIN I (test code = 2902880279) 0.004 ng/mL <=0.034 RON (test code = RON) Reference (Normal) Range (defined by the 99th percentile reference limit): <= 0.034 ng/mL Note: Cardiac troponin begins to rise 3-4 hours after the onset of ischemia. Repeat in 4-6 hours if the sample was drawn within 3-4 hours of the onset of the symptom and found normal. Diagnosis of myocardial injury is made with acute changes in cTn concentrations with at least one serial sample above the 99th percentile upper reference limit (URL), taken together with the patient's clinical presentation. Biotin has been reported to cause a negative bias, interpret results relative to patient's use of biotin. Lab Interpretation (test code = 54944-4) Normal [facility] ResourcesN-Terminal Shn-Csv8215-03-08 17:49:00* Test Item Value Reference Range Interpretation Comme nts NT-proBNP (test code = 10290-9) 38 pg/mL <=125 Lab Interpretation (test cod e = 60995-9) Normal [facility] Metabolic Panel (NA, K, CL, CO2, GLUCOSE, BUN, CREATININE, CA)2023-12-21 17:40:18* Test Item Value Reference Range Interpretation Comme nts NA (test code = 2123465463) 135 mmol/L 135-145 K (test code = 4892730954) 4.3 mmol/L 3.5-5.0 CL (test code = 0804961736) 108 mmol/L 98-108 CO2 TOTAL (test code = 6977522225) 26 mmol/L 23-31 AGAP (test code = 7584978063) 1 2-16 L BUN (test code = 7803667439) 16 mg/dL 7-23 GLUCOSE (test code = 9103157341) 90 mg/dL 70-110 CREATININE (test code = 2160-0) 0.74 mg/dL 0.60-1.25 CALCIUM (test code = 0127338524) 8.7 mg/dL 8.6-10.6 eGFR (test code = 08787-2) 109.0 mL/min/1.73m2 CKD-EPI eGFR (2020). Assuming creatinine has been stable day-to-day for at least three months, the eGFR indicates Category G1 (>= 90 mL/min/1.73 m2) Lab Interpretation (test code = 69071-6) Abnormal [facility] with Zzhz1581-10-52 17:12:36* Test Item Value Reference Range Interpretation Comme nts WBC (test code = 6690-2) 5.40 4.20-10.70 RBC (test code = 789-8) 4.57 4.26-5.52 HGB (test code = 718-7) 14.3 g/dL 12.2-16.4 HCT (test code = 4544-3) 40.5 % 38.4-49.3 MCV (test code = 787-2) 88.6 fL 81.7-95.6 MCH (test code = 785-6) 31.3 pg 26.1-32.7 MCHC (test code = 786-4) 35.3 g/dL 31.2-35.0 H RDW-SD (test code = 09635-4) 40.3 fL 38.5-51.6 RDW-CV (test code = 788-0) 12.5 % 12.1-15.4 PLT (test code = 777-3) 152 150-328 MPV (test code = 48547-1) 10.6 fL 9.8-13.0 NRBC/100 WBC (test code = 8581409020) 0.0 0.0-10.0 NRBC x10^3 (test code = 9520193976) See_Comment [Automated messa ge] The system which generated this result transmitted reference range: 10*3/?L. The reference range was not used to interpret this result as normal/abnormal. GRAN MAT (NEUT) % (test code = 770-8) 56.4 % IMM GRAN % (test code = 1388367240) 0.20 % LYMPH % (test code = 736-9) 28.9 % MONO % (test code = 5905-5) 11.7 % EOS % (test code = 713-8) 2.4 % BASO % (test code = 706-2) 0.4 % GRAN MAT x10^3(ANC) (test code = 7274575090) 3.05 10*3/uL 1.99-6.95 IMM GRAN x10^3 (test code = 1644710596) 0.00-0.06 LYMPH x10^3 (test code = 731-0) 1.56 10*3/uL 1.09-3.23 MONO x10^3 (test code = 742-7) 0.63 10*3/uL 0.36-1.02 EOS x10^3 (test code = 711-2) 0.13 10*3/uL 0.06-0.53 BASO x10^3 (test code = 704-7) 0.01-0.09 Lab Interpretation (test code = 83344-6) Abnormal [facility] ResourcesLip[facility], Vytuj8903-91-56 04:11:14* Test Item Value Reference Range Interpretation Comme nts LIPASE (test code = 7165898758) 40 U/L 0-220 Lab Interpretation (test cod e = 34759-6) Normal [facility] ResourcesComplete Metabolic Vecgm5670-17-41 04:10:39* Test Item Value Reference Range Interpretation Comme nts NA (test code = 7042528900) 135 mmol/L 135-145 K (test code = 1721621743) 4.1 mmol/L 3.5-5.0 CL (test code = 5564597566) 99 mmol/L 98-108 CO2 TOTAL (test code = 1739016831) 29 mmol/L 23-31 AGAP (test code = 3938916099) 7 2-16 BUN (test code = 3943305163) 18 mg/dL 7-23 GLUCOSE (test code = 9414912836) 101 mg/dL 70-110 CREATININE (test code = 3533074915) 1.07 mg/dL 0.60-1.25 TOTAL BILI (test code = 5048337570) 0.8 mg/dL 0.1-1.1 CALCIUM (test code = 2182840839) 9.1 mg/dL 8.6-10.6 T PROTEIN (test code = 9575228817) 7.9 g/dL 6.3-8.2 ALBUMIN (test code = 5922158819) 4.6 g/dL 3.5-5.0 ALK PHOS (test code = 8861744022) 51 U/L 34-122 ALTv (test code = 1742-6) 32 U/L 5-50 AST(SGOT) (test code = 6632078628) 37 U/L 13-40 eGFR (test code = 8063140231) 72.9 mL/min/1.73m2 RON (test code = RON) Association of Glomerular Filtration Rate (GFR) and Staging of Kidney Disease* + + +- +| GFR (mL/min/1.73 m2) ?| With Kidney Damage ?| ?Without Kidney Damage+ ------+ ----+ ------+| ?>90 ?| ?Stage one ?| ? Normal ?+ -+ + -+| ?60-89 ?| ?Stage two ?| ? Decreased GFR ? + + +- +| ?30-59 ?| ?Stage three ?| ? Stage three ? + + +- +| ?15-29 ?| ?Stage four ? | ? Stage four ?+ -+ + -+| ?<15 (or dialysis) ? ?| ?Stage five ? | ? Stage five ?+ -+ + -+ *Each stage assumes the associated GFR level has been in effect for at least three months. ?Stages 1 to 5, with or without kidney disease, indicate chronic kidney disease. Notes: Determination of stages one and two (with eGFR >59mL/min/1.73 m2) requires estimation of kidney damage for at least three months as defined by structural or functional abnormalities of the kidney, manifested by either:Pathological abnormalities or Markers of kidney damage (including abnormalities in the composition of the blood or urine or abnormalities in imaging tests). [facility] with Ahceacznocks9589-59-61 03:52:54* Test Item Value Reference Range Interpretation Comme nts WBC (test code = 6690-2) 13.14 See_Comment H [Automated message] The system which generated this result transmitted reference range: 4.20 - 10.70 10*3/?L. The reference range was not used to interpret this result as normal/abnormal. RBC (test code = 789-8) 4.94 See_Comment [Automated message] The system which generated this result transmitted reference range: 4.26 - 5.52 10*6/?L. The reference range was not used to interpret this result as normal/abnormal. HGB (test code = 718-7) 15.4 g/dL 12.2-16.4 HCT (test code = 4544-3) 43.7 % 38.4-49.3 MCV (test code = 787-2) 88.5 fL 81.7-95.6 MCH (test code = 785-6) 31.2 pg 26.1-32.7 MCHC (test code = 786-4) 35.2 g/dL 31.2-35.0 H RDW-SD (test code = 60204-9) 41.6 fL 38.5-51.6 RDW-CV (test code = 788-0) 12.9 % 12.1-15.4 PLT (test code = 777-3) 171 See_Comment [Automated message] The system which generated this result transmitted reference range: 150 - 328 10*3/?L. The reference range was not used to interpret this result as normal/abnormal. MPV (test code = 52253-5) 10.3 fL 9.8-13.0 NRBC/100 WBC (test code = 5552884227) 0.0 See_Comment [Automated message] The system which generated this result transmitted reference range: 0.0 - 10.0 /100 WBCs. The reference range was not used to interpret this result as normal/abnormal. NRBC x10^3 (test code = 7783028453) See_Comment [Automated message] The system which generated this result transmitted reference range: 10*3/?L. The reference range was not used to interpret this result as normal/abnormal. GRAN MAT (NEUT) % (test code = 770-8) 76.1 % IMM GRAN % (test code = 9655601763) 0.20 % LYMPH % (test code = 736-9) 12.4 % MONO % (test code = 5905-5) 10.9 % EOS % (test code = 713-8) 0.2 % BASO % (test code = 706-2) 0.2 % GRAN MAT x10^3(ANC) (test code = 9221542547) 10.00 10*3/uL 1.99-6.95 H IMM GRAN x10^3 (test code = 9831969730) 0.03 10*3/uL 0.00-0.06 LYMPH x10^3 (test code = 731-0) 1.63 10*3/uL 1.09-3.23 MONO x10^3 (test code = 742-7) 1.43 10*3/uL 0.36-1.02 H EOS x10^3 (test code = 711-2) 0.03 10*3/uL 0.06-0.53 L BASO x10^3 (test code = 704-7) 0.01-0.09 Lab Interpretation (test code = 44599-3) [id number] 07:06:01* Test Item Value Reference Range Interpretation Comments TROPONIN I (test code = 4536799939) 0.011 ng/mL See_Comment [Automated message] The system which generated this result transmitted reference range: <=0.034. The reference range was not used to interpret this result as normal/abnormal. RON (test code = RON) Reference (Normal) Range (defined by the 99th percentile reference limit): <= 0.034 ng/mL Note: Cardiac troponin begins to rise 3-4 hours after the onset of ischemia. Repeat in 4-6 hours if the sample was drawn within 3-4 hours of the onset of the symptom and found normal. Diagnosis of myocardial injury is made with acute changes in cTn concentrations with at least one serial sample above the 99th percentile upper reference limit (URL), taken together with the patient's clinical presentation. Biotin has been reported to cause a negative bias, interpret results relative to patient's use of biotin. Lab Interpretation (test code = 60588-0) Normal [facility] ResourcesT[facility] I - Code Wzagqo8131-08-69 03:40:58* Test Item Value Reference Range Interpretation Comments TROPONIN I (test code = 3957200285) 0.011 ng/mL See_Comment [Automated message] The system which generated this result transmitted reference range: <=0.034. The reference range was not used to interpret this result as normal/abnormal. RON (test code = RON) Reference (Normal) Range (defined by the 99th percentile reference limit): <= 0.034 ng/mL Note: Cardiac troponin begins to rise 3-4 hours after the onset of ischemia. Repeat in 4-6 hours if the sample was drawn within 3-4 hours of the onset of the symptom and found normal. Diagnosis of myocardial injury is made with acute changes in cTn concentrations with at least one serial sample above the 99th percentile upper reference limit (URL), taken together with the patient's clinical presentation. Biotin has been reported to cause a negative bias, interpret results relative to patient's use of biotin. Lab Interpretation (test code = 13019-3) Normal [facility] - Code [id number] 03:30:16* Test Item Value Reference Range Interpretation Comme nts APTT Patient (test code = 3173-2) See_Comment [Automated message] The system which generated this result transmitted reference range: 23 - 38 Seconds. The reference range was not used to interpret this result as normal/abnormal. RON (test code = RON) The [facility] patient population mean normal value for aPTT is 30 seconds. Lab Interpretation (test code = 47785-5) Normal [facility] Metabolic Panel (NA, K, CL, CO2, Glucose, BUN, Creatinine, CA) - Code [id number] 03:29:15* Test Item Value Reference Range Interpretation Comme nts NA (test code = 4301972303) 135 mmol/L 135-145 K (test code = 4209321285) 3.9 mmol/L 3.5-5 CL (test code = 1885060330) 103 mmol/L 98-108 CO2 TOTAL (test code = 1241667568) 25 mmol/L 23-31 AGAP (test code = 5146859704) 2-16 BUN (test code = 1451558343) 15 mg/dL 7-23 GLUCOSE (test code = 4197813728) 154 mg/dL 70-110 H CREATININE (test code = 9959641640) 0.79 mg/dL 0.6-1.25 CALCIUM (test code = 6676007039) 8.4 mg/dL 8.6-10.6 L eGFR (test code = 0537539343) mL/min/1.73m2 RON (test code = RON) Association of Glomerular Filtration Rate (GFR) and Staging of Kidney Disease* + --+ --+ ------+| GFR (mL/min/1.73 m2) ?| With Kidney Damage ?| ?Without Kidney Damage+ --------+ --------+ +| ?>90 ?| ?Stage one ?| ? Normal ?+ ---+ ---+ -------+| ?60-89 ?| ?Stage two ?| ? Decreased GFR ? + --+ --+ ------+| ?30-59 ?| ?Stage three ?| ? Stage three ? + --+ --+ ------+| ?15-29 ?| ?Stage four ? | ? Stage four ?+ ---+ ---+ -------+| ?<15 (or dialysis) ? ?| ?Stage five ? | ? Stage five ?+ ---+ ---+ -------+ *Each stage assumes the associated GFR level has been in effect for at least three months. ?Stages 1 to 5, with or without kidney disease, indicate chronic kidney disease. Notes: Determination of stages one and two (with eGFR >59mL/min/1.73 m2) requires estimation of kidney damage for at least three months as defined by structural or functional abnormalities of the kidney, manifested by either:Pathological abnormalities or Markers of kidney damage (including abnormalities in the composition of the blood or urine or abnormalities in imaging tests). Lab Interpretation (test code = 11857-2) Abnormal [facility] Time / INR - Code [id number] 03:27:59* Test Item Value Reference Range Interpretation Comme nts PROTIME PATIENT (test code = 5964-2) See_Comment [Automated R-Squareda ge] The system which generated this result transmitted reference range: 12.0 - 14.7 Seconds. The reference range was not used to interpret this result as normal/abnormal. INR (test code = 6301-6) Normal INR <1.1; Warfarin Therapeutic range 2.0 to 3.0 or 2.5 to 3.5, depending upon the indications. Lab Interpretation (test code = 31842-3) Normal [facility] without Diff - Code [id number] 03:19:36* Test Item Value Reference Range Interpretation Comme nts WBC (test code = 6690-2) See_Comment [Automated message] The system which generated this result transmitted reference range: 4.20 - 10.70 10*3/?L. The reference range was not used to interpret this result as normal/abnormal. RBC (test code = 789-8) See_Comment [Automated message] The system which generated this result transmitted reference range: 4.26 - 5.52 10*6/?L. The reference range was not used to interpret this result as normal/abnormal. HGB (test code = 718-7) 15.6 g/dL 12.2-16.4 HCT (test code = 4544-3) 43.5 % 38.4-49.3 MCH (test code = 785-6) 31.3 pg 26.1-32.7 MCV (test code = 787-2) 87.2 fL 81.7-95.6 MCHC (test code = 786-4) 35.9 g/dL 31.2-35 H PLT (test code = 777-3) See_Comment [Automated message] The system which generated this result transmitted reference range: 150 - 328 10*3/?L. The reference range was not used to interpret this result as normal/abnormal. MPV (test code = 40987-1) 9.2 fL 9.8-13 L RDW-CV (test code = 788-0) 12.5 % 12.1-15.4 RDW-SD (test code = 63819-5) 39.5 fL 38.5-51.6 NRBC x10^3 (test code = 4240742473) See_Comment [Automated R-Squareda ge] The system which generated this result transmitted reference range: 10*3/?L. The reference range was not used to interpret this result as normal/abnormal. NRBC/100 WBC (test code = 4105426130) See_Comment [Automated R-Squareda ge] The system which generated this result transmitted reference range: 0.0 - 10.0 /100 WBCs. The reference range was not used to interpret this result as normal/abnormal. IPF % (test code = 6811231892) Lab Interpretation (test code = 80822-1) Abnormal [facility]PO[facility] GLUCOSE (AUTOMATED)2022-06-16 03:16:04* Test Item Value Reference Range Interpretation Comme nts POCT GLU (test code = 7067266360) 149 mg/dL 70-110 H Lab Interpretation (test cod e = 92441-1) Abnormal [facility] ResourcesTroponin [id number] 22:14:10* Test Item Value Reference Range Interpretation Comments TROPONIN I (test code = 8651156936) 0.002 ng/mL See_Comment [Automated message] The system which generated this result transmitted reference range: <=0.034. The reference range was not used to interpret this result as normal/abnormal. RON (test code = RON) Reference (Normal) Range (defined by the 99th percentile reference limit): <= 0.034 ng/mL Note: Cardiac troponin begins to rise 3-4 hours after the onset of ischemia. Repeat in 4-6 hours if the sample was drawn within 3-4 hours of the onset of the symptom and found normal. Diagnosis of myocardial injury is made with acute changes in cTn concentrations with at least one serial sample above the 99th percentile upper reference limit (URL), taken together with the patient's clinical presentation. Biotin has been reported to cause a negative bias, interpret results relative to patient's use of biotin. Lab Interpretation (test code = 14214-5) Normal [facility] ResourcesN-TERMINAL [id number] 22:10:13* Test Item Value Reference Range Interpretation Comme nts NT-proBNP (test code = 8088446256) 74 pg/mL See_Comment [Automated message] The system which generated this result transmitted reference range: <=125. The reference range was not used to interpret this result as normal/abnormal. RON (test code = RON) Biotin has been reported to cause a negative bias, interpret results relative to patient's use of biotin. Lab Interpretation (test code = 71796-6) Normal [facility] ResourcesUrinalysis2021-07-12 22:02:08* Test Item Value Reference Range Interpretation Comme nts APPEARANCE (test code = 9586896525) Clear Clear COLOR (test code = 4496526889) Yellow Yellow PH (test code = 8064204463) 4.8-8.0 SP GRAVITY (test code = 5458620423) 1.003-1.030 GLU U QUAL (test code = 9914689873) Normal Normal BLOOD (test code = 1429564958) Negative Negative KETONES (test code = 7181194319) Negative Negative PROTEIN (test code = 2887-8) Negative Negative UROBILIN (test code = 6250994250) Normal Normal BILIRUBIN (test code = 1210808379) Negative Negative NITRITE (test code = 3590917181) Negative Negative LEUK SUSANNA (test code = 8001082667) Negative Negative RBC/HPF (test code = 8428279174) See_Comment H [Automated R-Squareda ge] The system which generated this result transmitted reference range: 0 - 3 HPF. The reference range was not used to interpret this result as normal/abnormal. WBC/HPF (test code = 6237195230) <1 See_Comment [Automated R-Squareda ge] The system which generated this result transmitted reference range: 0 - 5 HPF. The reference range was not used to interpret this result as normal/abnormal. BACTERIA (test code = 9225889642) Negative Negative MUCOUS (test code = 8922167008) Slight Negative LPF A HYAL CAST (test code = 9136472805) See_Comment [Automated R-Squareda ge] The system which generated this result transmitted reference range: <=2 LPF. The reference range was not used to interpret this result as normal/abnormal. Lab Interpretation (test code = 05731-2) Abnormal [facility] Metabolic Panel (NA, K, CL, CO2, GLUCOSE, BUN, CREATININE, CA)2021-04-25 21:25:41* Test Item Value Reference Range Interpretation Comme nts NA (test code = 3854447252) 134 mmol/L 135-145 L K (test code = 3300065119) 4.1 mmol/L 3.5-5.0 CL (test code = 8381851240) 103 mmol/L 98-108 CO2 TOTAL (test code = 5818297659) 24 mmol/L 23-31 AGAP (test code = 1593190126) 2-16 BUN (test code = 1571662654) 16 mg/dL 7-23 GLUCOSE (test code = 5946229927) 114 mg/dL 70-110 H CREATININE (test code = 1841553279) 0.73 mg/dL 0.60-1.25 CALCIUM (test code = 7925344641) 8.9 mg/dL 8.6-10.6 eGFR (test code = 8594889577) mL/min/1.73m2 RON (test code = RON) Association of Glomerular Filtration Rate (GFR) and Staging of Kidney Disease* + --+ --+ ------+| GFR (mL/min/1.73 m2) ?| With Kidney Damage ?| ?Without Kidney Damage+ --------+ --------+ +| ?>90 ?| ?Stage one ?| ? Normal ?+ ---+ ---+ -------+| ?60-89 ?| ?Stage two ?| ? Decreased GFR ? + --+ --+ ------+| ?30-59 ?| ?Stage three ?| ? Stage three ? + --+ --+ ------+| ?15-29 ?| ?Stage four ? | ? Stage four ?+ ---+ ---+ -------+| ?<15 (or dialysis) ? ?| ?Stage five ? | ? Stage five ?+ ---+ ---+ -------+ *Each stage assumes the associated GFR level has been in effect for at least three months. ?Stages 1 to 5, with or without kidney disease, indicate chronic kidney disease. Notes: Determination of stages one and two (with eGFR >59mL/min/1.73 m2) requires estimation of kidney damage for at least three months as defined by structural or functional abnormalities of the kidney, manifested by either:Pathological abnormalities or Markers of kidney damage (including abnormalities in the composition of the blood or urine or abnormalities in imaging tests). Lab Interpretation (test code = 49233-3) Abnormal [facility] ResourcesHepatic Function Panel (ALB, T.PRO, BILI T, BU/BC, ALT, AST, ALK PHOS)2021-04-25 21:25:41* Test Item Value Reference Range Interpretation Comme nts TOTAL BILI (test code = 0102545077) 0.5 mg/dL 0.1-1.1 BILI UNCON (test code = 2306639113) 0.5 mg/dL 0.1-1.1 BILI CONJ (test code = 6919816832) 0.0 mg/dL 0.0-0.3 T PROTEIN (test code = 8881859321) 6.7 g/dL 6.3-8.2 ALBUMIN (test code = 5315642662) 4.0 g/dL 3.5-5.0 ALK PHOS (test code = 3115466949) 56 U/L 34-122 ALTv (test code = 1742-6) 27 U/L 5-50 AST(SGOT) (test code = 0115146642) 30 U/L 13-40 Lab Interpretation (test cod e = 02609-5) Normal [facility] ResourcesCT Abdomen/Pelvis W/O [id number] 20:36:04No evidence for urolithiasis or obstructive renal disease. The abdomen and pelvis exam is otherwisenegative for an acute finding. EXAM: CT ABDOMEN AND PELVIS WITHOUT CONTRAST HISTORY: 50-year-old male with flank pain, kidney stone suspected. COMPARISON: None. TECHNIQUE AND FINDINGS: Contiguous axial imaging from the level of the lungbases through the pubic symphysis was performed without contrast. Coronaland sagittal reconstructions were obtained. DOSE: DLP is 462 mGy/cm. FINDINGS: LOWER THORAX: The lungs bases are clear. No cardiomegaly. LIVER: No focal hepatic lesions. Right lobe segment 6or 7 has a linear 2cm calcification. This is likely a sequela from a remote event. No biliaryductaldilation. GALLBLADDER AND BILIARY TREE: No biliary ductal dilation. The gallbladderis contracted. SPLEEN: No splenomegaly. PANCREAS: No ductal dilation or masses. ADRENAL GLANDS: No adrenal nodules. KIDNEYS: No hydronephrosis, stones, or masses. The ureters are clear. PERITONEUM AND RETROPERITONEUM: No free air or fluid. LYMPH NODES: No lymphadenopathy. The peritoneal and pelvic nodes arenegative. The inguinal nodes are prominent this is a nonspecific finding. GI TRACT: No dilation or wall thickening. PELVIS/BLADDER: Unremarkable. The bladder lumen is clear. VESSELS: Unremarkable. BONES AND SOFT TISSUES: No suspicious lytic or sclerotic bony lesions. [facility], Radiant Results Inft User - 04/25/2021 3:37 PM CDT EXAM: CT ABDOMEN AND PELVIS WITHOUT CONTRASTHISTORY: 50-year-old male with flank pain, kidney stone suspected.COMPARISON: None.TECHNIQUE AND FINDINGS: Contiguous axial imaging from the level of the lungbases through the pubic symphysis was performed without contrast. Coronaland sagittal reconstructions were obtained.DOSE:DLP is 462 mGy/cm.FINDINGS:LOWER THORAX: The lungs bases are clear. No cardiomegaly.LIVER: No focalhepatic lesions. Right lobe segment 6 or 7 has a linear 2cm calcification. This is likely a sequelafrom a remote event. No biliaryductal dilation.GALLBLADDER AND BILIARY TREE: No biliary ductal dilation. The gallbladderis contracted.SPLEEN: No splenomegaly.PANCREAS: No ductal dilation or masses.ADRENAL GLANDS: No adrenal nodules.KIDNEYS: No hydronephrosis, stones, or masses. The ureters are clear.PERITONEUM AND RETROPERITONEUM: No free air or fluid.LYMPH NODES: No lymphadenopathy. The peritoneal and pelvic nodes arenegative. The inguinal nodes are prominent this is a nonspecific finding.GI TRACT: No dilation or wall thickening.PELVIS/BLADDER: Unremarkable. The bladder lumen is clear.VESSELS: Unremarkable.BONES AND SOFT TISSUES: No suspicious lytic or sclerotic bony lesions.IMPRESSIONNo evidence for urolithiasis or obstructive renal disease.The abdomen and pelvis exam is otherwise negative for an acute finding.[facility]CB with [id number] 20:24:48* Test Item Value Reference Range Interpretation Comme nts WBC (test code = 6690-2) See_Comment [Automated messa ge] The system which generated this result transmitted reference range: 4.20 - 10.70 10*3/?L. The reference range was not used to interpret this result as normal/abnormal. RBC (test code = 789-8) See_Comment [Automated messa ge] The system which generated this result transmitted reference range: 4.26 - 5.52 10*6/?L. The reference range was not used to interpret this result as normal/abnormal. HGB (test code = 718-7) 13.7 g/dL 12.2-16.4 HCT (test code = 4544-3) 39.8 % 38.4-49.3 MCV (test code = 787-2) 87.3 fL 81.7-95.6 MCH (test code = 785-6) 30.0 pg 26.1-32.7 MCHC (test code = 786-4) 34.4 g/dL 31.2-35.0 RDW-SD (test code = 09233-2) 38.5 fL 38.5-51.6 RDW-CV (test code = 788-0) 12.0 % 12.1-15.4 L PLT (test code = 777-3) See_Comment [Automated messa ge] The system which generated this result transmitted reference range: 150 - 328 10*3/?L. The reference range was not used to interpret this result as normal/abnormal. MPV (test code = 45794-0) 10.5 fL 9.8-13.0 NRBC/100 WBC (test code = 6338016729) See_Comment [Automated [employer] ssage] The system which generated this result transmitted reference range: 0.0 - 10.0 /100 WBCs. The reference range was not used to interpret this result as normal/abnormal. NRBC x10^3 (test code = 8541953157) <0.01 See_Comment [Automated messa ge] The system which generated this result transmitted reference range: 10*3/?L. The reference range was not used to interpret this result as normal/abnormal. GRAN MAT (NEUT) % (test code = 770-8) 62.1 % IMM GRAN % (test code = 6298429115) 0.20 % LYMPH % (test code = 736-9) 24.3 % MONO % (test code = 5905-5) 9.8 % EOS % (test code = 713-8) 3.2 % BASO % (test code = 706-2) 0.4 % GRAN MAT x10^3(ANC) (test code = 1392833891) 3.48 10*3/uL 1.99-6.95 IMM GRAN x10^3 (test code = 1472268833) <0.03 0.00-0.06 LYMPH x10^3 (test code = 731-0) 1.36 10*3/uL 1.09-3.23 MONO x10^3 (test code = 742-7) 0.55 10*3/uL 0.36-1.02 EOS x10^3 (test code = 711-2) 0.18 10*3/uL 0.06-0.53 BASO x10^3 (test code = 704-7) <0.03 0.01-0.09 Lab Interpretation (test code = 16828-1) Abnormal [facility] Notes Date/Time Note Provider Source 2024-11-23 18:20:53 PT D/C home. GCS15, VS stable. Given D/C paperwork. Pt ambulatory at time of discharge. Pt educated on med usage, follow up care, s/s worsening condition, need for hydration. Pt verbalized understanding. Pt ambulated from ED in NAD. No prescriptions given A Quiroz RN [facility] 2024-11-23 18:18:55 Provider notified of elevated BP, pt to f/u with PCP. Pt ok to d/c home per provider [facility] 2024-11-23 18:00:00 Assumed care of pt [facility] 2024-11-23 15:27:00 Patient came in with complaints of RLQ abdominal pain since yesterday. States that he noticed a little bruise on the RLQ yesterday and it's grown bigger today. ED provider in triage. A Sue RN [facility] 2024-09-06 10:02:33 Pt given printed and verbal discharge instructions regarding chest pain. Pt verbalized understanding of instructions, pt awake alert oriented, resp reg unlabored, skin w/d, color appropriate for race, moves all ext well,pt encouraged to follow up with pcp. Advised to seek medical attention for new/prolonged/worsening of symptoms. PIV d'cd, dressing to site, catheter in tact. Awake, alert oriented, resp reg unlabored, skin w/d, pt leaving amb with steady gait, in no apparent distress. A Redman RN [facility] 2024-09-06 06:05:08 Pt arrived ambulatory C/o shortness of breath, light headed, dizzy, feels like his bp is low within the last hour Hx: asthma, htn A Tuttle RN [facility] 2024-09-06 05:59:00 Associated Order(s): EKG-12 Lead ROUTINE ONCE Pre-Procedure Diagnose(s): Chest pain, unspecified type Post-Procedure Diagnose(s): Chest pain, unspecified type [facility] Emergency Department Note Patient Name: Viridiana Shetty Jr. 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 He reports he was sleeping when he woke up with the symptoms. He reports he felt fine when he went to bed last night. He woke up and told his who brought him here to the ER for evaluation. He is now feeling better upon arrival to the ER. He does have a history of high blood pressure as well as GERD. No history of diabetes. He does not smoke. No previous history of coronary disease. No medications taken prior to arrival. Here for evaluation. Past Medical History/Immunizations: History reviewed. No pertinent past medical history. Tetanus received in last 5 years: Yes Childhood immunizations: Up-to-date Allergies: No Known Allergies Past Social History: Substance & Sexual Activity No substance use or sexual activity history on file. Past Surgical History: History reviewed. No pertinent surgical history. Review of Systems: Review of Systems Constitutional: Negative for chills and fever. Respiratory: Positive for shortness of breath. Negative for cough. Cardiovascular: Negative for chest pain. Gastrointestinal: Negative for abdominal pain and vomiting. Genitourinary: Negative for dysuria. Musculoskeletal: Negative for arthralgias, neck pain and neck stiffness. Skin: Negative for wound. Neurological: Negative for dizziness. Psychiatric/Behavioral: Negative for agitation. Endocrine: Negative for goiter. Physical Exam: ED Triage Vitals [09/06/24 0607] Weight 108.9 kg (240 lb) Actual or estimated Actual Height 1.803 m (5' 11") BP (!) 147/85 Pulse 100 Resp 17 Temp 36.5 ?C (97.7 ?F) Temp source Oral SpO2 96 % Measured on Room air Physical Exam Vitals and nursing note reviewed. Constitutional: Appearance: Normal appearance. He is obese. HENT: Head: Normocephalic and atraumatic. Cardiovascular: Rate and Rhythm: Normal rate and regular rhythm. Pulses: Normal pulses. Pulmonary: Effort: Pulmonary effort is normal. No respiratory distress. Breath sounds: No stridor. No wheezing or rhonchi. Abdominal: General: There is no distension. Palpations: Abdomen is soft. There is no mass. Tenderness: There is no abdominal tenderness. There is no guarding or rebound. Hernia: No hernia is present. Musculoskeletal: General: Normal range of motion. Cervical back: Normal range of motion and neck supple. Skin: General: Skin is warm and dry. Neurological: General: No focal deficit present. Mental Status: He is alert and oriented to person, place, and time. Radiology: No orders to display Lab Results: Lab Results COMP. METABOLIC PANEL (31801) - Abnormal Result Value Ref Range NA 139 135 - 145 mmol/L K 3.8 3.5 - 5.0 mmol/L CL 107 98 - 108 mmol/L CO2 TOTAL 28 23 - 31 mmol/L AGAP 4 2 - 16 BUN 16 7 - 23 mg/dL GLUCOSE 113 (*) 70 - 110 mg/dL CREATININE 0.83 0.60 - 1.25 mg/dL TOTAL BILI 0.2 0.1 - 1.1 mg/dL CALCIUM 8.3 (*) 8.6 - 10.6 mg/dL T PROTEIN 6.3 6.3 - 8.2 g/dL ALBUMIN 3.9 3.5 - 5.0 g/dL ALK PHOS 69 34 - 122 U/L ALTv 22 5 - 50 U/L AST(SGOT) 26 13 - 40 U/L eGFR 105.3 mL/min/1.73m2 CBC WITH DIFF - Abnormal WBC 5.64 4.20 - 10.70 10*3/?L RBC 4.47 4.26 - 5.52 10*6/?L HGB 13.5 12.2 - 16.4 g/dL HCT 39.0 38.4 - 49.3 % MCV 87.2 81.7 - 95.6 fL MCH 30.2 26.1 - 32.7 pg MCHC 34.6 31.2 - 35.0 g/dL RDW-SD 40.1 38.5 - 51.6 fL RDW-CV 12.5 12.1 - 15.4 % PLT 163 150 - 328 10*3/?L MPV 9.7 (*) 9.8 - 13.0 fL NRBC/100 WBC 0.0 0.0 - 10.0 /100 WBCs NRBC x10 3 <0.01 10*3/?L GRAN MAT (NEUT) % 52.4 % IMM GRAN % 0.00 % LYMPH % 33.2 % MONO % 11.9 % EOS % 2.1 % BASO % 0.4 % GRAN MAT x10 3 (ANC) 2.96 1.99 - 6.95 10*3/uL IMM GRAN x10 3 <0.03 0.00 - 0.06 10*3/uL LYMPH x10 3 1.87 1.09 - 3.23 10*3/uL MONO x10 3 0.67 0.36 - 1.02 10*3/uL EOS x10 3 0.12 0.06 - 0.53 10*3/uL BASO x10 3 <0.03 0.01 - 0.09 10*3/uL TROPONIN I - Normal TROPONIN I 0.006 <=0.034 ng/mL LIPASE - Normal LIPASE 96 0 - 220 U/L TROPONIN I - Normal TROPONIN I 0.005 <=0.034 ng/mL EKG: If EKG completed, see Procedure Note. Orders and Treatments: Orders Placed This Encounter Procedures TROPONIN I COMP. METABOLIC PANEL (98627) LIPASE, SERUM CBC WITH DIFF TROPONIN I No orders of the defined types were placed in this encounter. 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 He reports he was sleeping when he woke up with the symptoms. He reports he felt fine when he went to bed last night. He woke up and told his who brought him here to the ER for evaluation. He is now feeling better upon arrival to the ER. He does have a history of high blood pressure as well as GERD. No history of diabetes. He does not smoke. No previous history of coronary disease. No medications taken prior to arrival. Vital signs are stable in the ER. The patient is obese. His heart is regular rhythm. His lungs are clear bilaterally. His abdomen is soft and nontender. His EKG shows a normal sinus rhythm, no STEMI. The patient is low risk for ACS and his presentation is atypical for this. Will check laboratory studies including a troponin. Final disposition pending. 926 -the patient is doing well here in the ER. He has had no reoccurrence of his symptoms since arrival to the ER. His troponin was negative x 2. He remained stable here in the ER and is okay for discharge home with outpatient follow-up. Problems Addressed: Chest pain, unspecified type: acute illness or injury Amount and/or Complexity of Data Reviewed Labs: ordered. Decision-making details documented in ED Course. ECG/medicine tests: ordered and independent interpretation performed. Decision-making details documented in ED Course. Flowsheet Documentation: Scoring Tools: No data recorded Disposition/Condition: ED Disposition ED Disposition Discharge Condition Stable Comment -- Discharge Medications: Patient's Medications START taking these medications No medications on file CONTINUE taking these medications which have NOT CHANGED AMLODIPINE 5 MG TABLET Take 1 tablet by mouth in the morning. DICYCLOMINE 20 MG TABLET Take 1 tablet by mouth every 6 (six) hours as needed for Abdominal pain. ONDANSETRON (ZOFRAN) 4 MG TABLET Take 1 tablet by mouth every 8 (eight) hours as needed for Nausea and Vomiting (N/V). TRAMADOL (ULTRAM) 50 MG TABLET Take 1 tablet by mouth every 6 (six) hours as needed for Pain (scale 7-10). Indications: acute pain START taking Modified Medications as Prescribed No medications on file STOP taking these medications No medications on file Follow-up: Electronically signed by: Joan Che DO 09/06/24 0928 [facility] 2024-04-06 01:32:02 Pt discharged with diagnosis of R sided abd pain. Printed and verbal instructions reviewed with and given to pt. Prescriptions given x 3. Pt verbalized understanding of teaching, medications, and recommended follow-up. Denies questions or concerns at this time. Pt ambulatory at discharge. Appears in no apparent distress. No ataxia noted. Meggan Corona RN [facility] 2024-04-05 22:31:18 CC: right sided abdominal tenderness x 3-4 days. 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 is a 53 year old male who presents to the ED for evaluation of right mid abdominal pain X 4 days. Pain is rated at 5/10. No known aggravating or relieving factors. Has nausea. Also reports loose stool today. No melena. No hematochezia. No fever but had chills. 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 Abdominal Pain Pain location: RUQ and RLQ Pain quality: aching Pain radiates to: Does not radiate Pain severity: Moderate Onset quality: Gradual Duration: 4 days Timing: Sporadic Progression: Worsening Chronicity: New Context: not alcohol use, not awakening from sleep, not diet changes, not eating, not laxative use, not medication withdrawal, not previous surgeries, not recent illness, not recent travel, not retching, not sick contacts, not suspicious food intake and not trauma Relieved by: None tried Worsened by: Nothing Ineffective treatments: None tried Associated symptoms: anorexia, chills, fatigue and nausea Associated symptoms: no chest pain, no constipation, no diarrhea, no dysuria, no fever, no hematemesis, no hematochezia, no hematuria, no melena, no shortness of breath, no sore throat and no vomiting Risk factors: obesity Risk factors: no aspirin use, not elderly, has not had multiple surgeries, no NSAID use and no recent hospitalization Past Medical History/Immunizations: Diverticulitis Tetanus received in last 5 years: No Allergies: No Known Allergies Past Social History: Substance & Sexual Activity No substance use or sexual activity history on file. Past Surgical History: Polypectomy Review of Systems: Review of Systems Constitutional: Positive for appetite change, chills and fatigue. Negative for fever. HENT: Negative. Negative for sore throat. Eyes: Negative. Respiratory: Negative. Negative for shortness of breath. Breasts: Negative. Cardiovascular: Negative. Negative for chest pain. Gastrointestinal: Positive for abdominal pain, anorexia and nausea. Negative for abdominal distention, anal bleeding, blood in stool, constipation, diarrhea, hematemesis, hematochezia, melena, rectal pain and vomiting. Genitourinary: Negative. Negative for dysuria and hematuria. Musculoskeletal: Negative. Skin: Negative. Neurological: Negative. Psychiatric/Behavioral: Negative. All other systems reviewed and are negative. Endocrine: Endocrine negative Physical Exam: ED Triage Vitals [04/05/24 2232] Weight 113.4 kg (250 lb) Actual or estimated Actual Height 1.803 m (5' 11") BP (!) 140/96 Pulse 96 Resp 21 Temp 36.3 ?C (97.4 ?F) Temp source Oral SpO2 96 % Measured on Room air Physical Exam Vitals reviewed. Constitutional: General: He is not in acute distress. Appearance: Normal appearance. He is well-developed. He is obese. He is not ill-appearing, toxic-appearing or diaphoretic. HENT: Head: Normocephalic and atraumatic. Nose: Nose normal. No congestion or rhinorrhea. Mouth/Throat: Mouth: Mucous membranes are moist. Pharynx: Oropharynx is clear. Eyes: General: No scleral icterus. Right eye: No discharge. Left eye: No discharge. Extraocular Movements: Extraocular movements intact. Conjunctiva/sclera: Conjunctivae normal. Pupils: Pupils are equal, round, and reactive to light. Cardiovascular: Rate and Rhythm: Normal rate and regular rhythm. Pulses: Normal pulses. Heart sounds: Normal heart sounds. No murmur heard. Pulmonary: Effort: Pulmonary effort is normal. No respiratory distress. Breath sounds: Normal breath sounds. No stridor. No wheezing, rhonchi or rales. Chest: Chest wall: No tenderness. Abdominal: General: Bowel sounds are normal. There is no distension. Palpations: Abdomen is soft. There is no mass. Tenderness: There is abdominal tenderness. There is no right CVA tenderness, left CVA tenderness, guarding or rebound. Hernia: No hernia is present. Comments: Mild ttp Right mid abdomen Musculoskeletal: General: No swelling, tenderness, deformity or signs of injury. Normal range of motion. Cervical back: Normal range of motion and neck supple. No rigidity or tenderness. Lymphadenopathy: Cervical: No cervical adenopathy. Skin: General: Skin is warm and dry. Capillary Refill: Capillary refill takes less than 2 seconds. Coloration: Skin is not jaundiced or pale. Findings: No bruising, erythema, lesion or rash. Neurological: General: No focal deficit present. Mental Status: He is alert and oriented to person, place, and time. Mental status is at baseline. Cranial Nerves: No cranial nerve deficit. Sensory: No sensory deficit. Motor: No weakness. Coordination: Coordination normal. Gait: Gait normal. Deep Tendon Reflexes: Reflexes normal. Psychiatric: Mood and Affect: Mood normal. Behavior: Behavior normal. Thought Content: Thought content normal. Judgment: Judgment normal. Radiology: CT ABDOMEN PELVIS W CONTRAST Final Result Ordering Physician: JAYLA THOMAS Clinical indication: Acute localized abdominal pain Comparison: April 25, 2021. Technique: CT abdomen and pelvis with intravenous contrast. This examination was performed according to ALARA principles. Technical quality: Adequate Findings: The liver is mildly enlarged a calcified granuloma of the right hepatic lobe is again noted. The gallbladder is contracted. The spleen is borderline in size. Calcified granulomas of the spleen are noted. The pancreas and adrenal glands are unremarkable. Evaluation of the stomach is limited by lack of distention, but no gross gastric abnormalities are apparent. There are small bilateral renal cortical cysts. There is minimal atherosclerotic calcification, with no aneurysms of the abdomen or pelvis evident. The urinary bladder is unremarkable in appearance. The prostate gland does not appear enlarged. There is colonic diverticulosis, without diverticulitis. A normal appendix is identified. There is no small bowel distention. There is no free intraperitoneal fluid or free intraperitoneal air. Included lung bases are clear. There are mild degenerative changes of the spine. No acute bony abnormalities are evident. IMPRESSION Impression: 1. Mild hepatomegaly. 2. Small bilateral renal cortical cysts. 3. Colonic diverticulosis, without diverticulitis. AFC: [id number] RL: 460 End of Report Lab Results: Lab Results URINALYSIS - Abnormal Result Value Ref Range APPEARANCE Hazy (*) Clear COLOR Yellow Yellow PH 6.0 4.8 - 8.0 SP GRAVITY 1.021 1.003 - 1.030 GLU U QUAL Normal Normal BLOOD Negative Negative KETONES Negative Negative PROTEIN Negative Negative UROBILIN Normal Normal BILIRUBIN Negative Negative NITRITE Negative Negative LEUK SUSANNA Negative Negative RBC/HPF 3 0 - 3 HPF WBC/HPF 1 0 - 5 HPF BACTERIA Few (*) Negative MUCOUS Slight (*) Negative LPF SQ EPITH <1 HPF COMP. METABOLIC PANEL (79558) - Abnormal NA 137 135 - 145 mmol/L K 4.2 3.5 - 5.0 mmol/L CL 105 98 - 108 mmol/L CO2 TOTAL 23 23 - 31 mmol/L AGAP 9 2 - 16 BUN 25 (*) 7 - 23 mg/dL GLUCOSE 164 (*) 70 - 110 mg/dL CREATININE 0.86 0.60 - 1.25 mg/dL TOTAL BILI 0.5 0.1 - 1.1 mg/dL CALCIUM 8.9 8.6 - 10.6 mg/dL T PROTEIN 7.0 6.3 - 8.2 g/dL ALBUMIN 4.1 3.5 - 5.0 g/dL ALK PHOS 72 34 - 122 U/L ALTv 26 5 - 50 U/L AST(SGOT) 41 (*) 13 - 40 U/L eGFR 104.2 mL/min/1.73m2 LIPASE - Normal LIPASE 69 0 - 220 U/L CBC WITH DIFF WBC 6.24 4.20 - 10.70 10*3/?L RBC 4.49 4.26 - 5.52 10*6/?L HGB 13.8 12.2 - 16.4 g/dL HCT 40.5 38.4 - 49.3 % MCV 90.2 81.7 - 95.6 fL MCH 30.7 26.1 - 32.7 pg MCHC 34.1 31.2 - 35.0 g/dL RDW-SD 41.6 38.5 - 51.6 fL RDW-CV 12.6 12.1 - 15.4 % PLT 156 150 - 328 10*3/?L MPV 10.6 9.8 - 13.0 fL NRBC/100 WBC 0.0 0.0 - 10.0 /100 WBCs NRBC x10 3 <0.01 10*3/?L GRAN MAT (NEUT) % 55.3 % IMM GRAN % 0.20 % LYMPH % 32.5 % MONO % 9.1 % EOS % 2.6 % BASO % 0.3 % GRAN MAT x10 3 (ANC) 3.45 1.99 - 6.95 10*3/uL IMM GRAN x10 3 <0.03 0.00 - 0.06 10*3/uL LYMPH x10 3 2.03 1.09 - 3.23 10*3/uL MONO x10 3 0.57 0.36 - 1.02 10*3/uL EOS x10 3 0.16 0.06 - 0.53 10*3/uL BASO x10 3 <0.03 0.01 - 0.09 10*3/uL Orders and Treatments: Orders Placed This Encounter Procedures CT ABDOMEN PELVIS W CONTRAST Cbc with Diff Urinalysis Comp. Metabolic Panel (81569) Lipase Orders Placed This Encounter Medications ketorolac (TORADOL) injection 30 mg ondansetron (ZOFRAN (PF)) injection 4 mg iopamidol (ISOVUE 370-500 mL) injection 80 mL dicyclomine (BENTYL) injection 20 mg dicyclomine 20 mg tablet traMADoL (ULTRAM) 50 mg tablet ondansetron (ZOFRAN) 4 mg tablet First Provider Eval: ED Events Date/Time Event User Comments 04/05/242232 Medical Screening Begins JAYLA THOMAS MD -- 04/05/242232 First Provider Evaluation JAYLA THOMAS MD -- ED COURSE Diagnosis/Impression as of 04/06/24 0120 Right sided abdominal pain Procedures: Procedures MDM: Medical Decision Making Viridiana Shetty Jr. is a 53 year old male who presents to the ED for evaluation of a 4 day hx of right-id abdominal pain Problems Addressed: Right sided abdominal pain: acute illness or injury Details: ED evaluation, laboratory and imaging study results and management as documented in chart Amount and/or Complexity of Data Reviewed Labs: ordered. Decision-making details documented in ED Course. Radiology: ordered. Decision-making details documented in ED Course. Risk OTC drugs. Prescription drug management. Risk Details: Will refer pt to PCP/GI for further evaluation Flowsheet Documentation: Scoring Tools: No data recorded Disposition/Condition: ED Disposition ED Disposition Disch - Home Condition Stable Comment -- Discharge Medications: Patient's Medications START taking these medications DICYCLOMINE 20 MG TABLET Take 1 tablet by mouth every 6 (six) hours as needed for Abdominal pain. ONDANSETRON (ZOFRAN) 4 MG TABLET Take 1 tablet by mouth every 8 (eight) hours as needed for Nausea and Vomiting (N/V). TRAMADOL (ULTRAM) 50 MG TABLET Take 1 tablet by mouth every 6 (six) hours as needed for Pain (scale 7-10). Indications: acute pain CONTINUE taking these medications which have NOT CHANGED AMLODIPINE 5 MG TABLET Take 1 tablet by mouth in the morning. START taking Modified Medications as Prescribed No medications on file STOP taking these medications No medications on file Follow-up: Contact information for follow-up Harmeet Hendricks DO Specialty: FM-FAMILY MEDICINE Relationship: [facility] [address] [place] [address] [facility] [address] López Murray MD Specialty: IM-GASTROENTEROLOGY [facility] [id number] [facility] [id number] Ming Orozco MD Specialty: IM-GASTROENTEROLOGY [address] [facility] [address] Viridiana Paez Specialty: IM-GASTROENTEROLOGY [address] [place] [facility] [id number] Electronically signed by: Jayla Thomas MD 04/06/24 0120 [facility] 2023-12-21 12:36:51 Pt given printed and verbal discharge instructions regarding chest pain, encouraged hydration. Pt verbalized understanding of instructions, pt awake alert oriented, resp reg unlabored, skin w/d, color appropriate for race, moves all ext well,pt encouraged to follow up with pcp. Advised to seek medical attention for new/prolonged/worsening of symptoms. No adverse reaction to meds given in ER noted upon discharge. PIV d'cd, dressing to site, catheter in tact. Awake, alert oriented, resp reg unlabored, skin w/d, pt leaving amb with steady gait, in no apparent distress. A Sue RN [facility] 2023-12-21 10:07:05 Patient states: "I had a mild episode about 3 days ago. I shook it off as reflux. It's stayed there. Today I"m having pain in my left arm" Pmhx: htn. A Diez RN [facility] 2023-06-20 02:22:51 Formatting of this n ote might be different from the original. Pt given printed and verbal discharge instructions regarding Diverticulitis, right lower quadrant abdominal pain, encouraged hydration, Prescriptions provided: Avril Walker Discussed ibuprofen and to take with food to avoid GI distress. Discussed antibiotic therapy and to take until all completed unless adverse reaction occurs - if occurs, discontinue medication and follow up with pcp/seek medical attention Pt verbalized understanding of instructions, pt awake alert oriented, resp reg unlabored, skin w/d, color appropriate for race, moves all ext well,pt encouraged to follow up with pcp and or GI Advised to seek medical attention for new/prolonged/worsening of symptoms, Symptoms improved No adverse reaction to meds given in ER noted upon discharge PIV d'cd, dressing to site, catheter in tact. Awake, alert oriented, resp reg unlabored, skin w/d, pt leaving amb with steady gait, in no apparent distress, Brandy Marroquin RN [facility] 2023-06-20 01:16:09 Formatting of this n ote might be different from the original. Nurse Report Report given to AJ Marroquin. Chief complaint, assessment findings, infusion verify and orders reviewed. Plan of care discussed with both nurses. Marlene Valenzuela RN Marlene Valenzuela RN [facility] 2023-06-19 22:16:37 Formatting of this n ote might be different from the original. Registration called pt back in [facility]. [facility] 2023-06-19 21:54:24 Formatting of this n ote might be different from the original. Provider attempted to call patient from waiting room, no answer. Ashley Quiroz RN [facility] 2023-06-19 21:21:18 Formatting of this n ote might be different from the original. Attempted to call patient from waiting room, no answer. [facility] 2023-06-19 19:48:51 Formatting of this n ote might be different from the original. Pt arrived ambulatory with complaints of intermittent RLQ abdominal pain starting around 2:30 while at work. Pt had a BM and took gas medicine without relief. Wandy Redman RN [facility] 2023-06-19 19:34:00 Formatting of this n ote is different from the original. 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 Travel and Exposure Screening: Symptoms Does patient have any of these symptoms?: (not recorded) Exposure Screening Has patient had contact with someone with a communicable disease in the last month?: (not recorded) Diseases exposed to:: (not recorded) Is Patient ?: (not recorded) Exposure Date: (not recorded) Chief Complaint: Chief Complaint Patient presents with Abdominal Pain History of Present Illness: Viridiana Shetty is a 52 y/o M with PMHX: HTN who presents with acute onset of diffuse abdominal pain and nausea 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 No pertinent past medical history. Tetanus received in last 5 years: No Childhood immunizations: Up-to-date Allergies: No Known Allergies Past Social History: Substance & Sexual Activity No substance use or sexual activity history on file. Past Surgical History: History reviewed. No pertinent surgical history. Review of Systems: Review of Systems Gastrointestinal: Positive for abdominal pain (difuse). All other systems reviewed and are negative. Physical Exam: ED Triage Vitals [06/19/231949] Weight 113.6 kg (250 lb 8 oz) Actual or estimated Actual Height 1.816 m (5' 11.5") BP (!) 153/104 Pulse 117 Resp 20 Temp 37.5 ?C (99.5 ?F) Temp source Oral SpO2 96 % Measured on Room air Physical Exam Vitals and nursing note reviewed. Constitutional: General: He is awake. Appearance: Normal appearance. He is well-developed. He is obese. HENT: Head: Normocephalic and atraumatic. Jaw: There is normal jaw occlusion. Right Ear: Hearing, tympanic membrane, ear canal and external ear normal. Left Ear: Hearing, tympanic membrane, ear canal and external ear normal. Nose: Nose normal. Mouth/Throat: Lips: [place]. Mouth: Mucous membranes are moist. Pharynx: Oropharynx is clear. Eyes: General: Lids are normal. Vision grossly intact. Gaze aligned appropriately. Extraocular Movements: Extraocular movements intact. Conjunctiva/sclera: Conjunctivae normal. Pupils: Pupils are equal, round, and reactive to light. Cardiovascular: Rate and Rhythm: Normal rate and regular rhythm. Pulses: Normal pulses. Heart sounds: Normal heart sounds, S1 normal and S2 normal. Pulmonary: Effort: Pulmonary effort is normal. Breath sounds: Normal breath sounds. Abdominal: General: Bowel sounds are normal. Palpations: Abdomen is soft. Tenderness: There is abdominal tenderness (periumbilical and RLQ) in the right lower quadrant. Genitourinary: Comments: deferred Musculoskeletal: General: Normal range of motion. Cervical back: Full passive range of motion without pain, normal range of motion and neck supple. Skin: General: Skin is warm and dry. Capillary Refill: Capillary refill takes less than 2 seconds. Neurological: General: No focal deficit present. Mental Status: He is alert and oriented to person, place, and time. Cranial Nerves: Cranial nerves 2-12 are intact. Sensory: Sensation is intact. Motor: Motor function is intact. Coordination: Coordination is intact. Gait: Gait is intact. Deep Tendon Reflexes: Reflexes are normal and symmetric. Psychiatric: Attention and Perception: Attention and perception normal. Mood and Affect: Mood and affect normal. Speech: Speech normal. Behavior: Behavior normal. Behavior is cooperative. Thought Content: Thought content normal. Cognition and Memory: Cognition and memory normal. Judgment: Judgment normal. Radiology: CT ABDOMEN PELVIS WO CONTRAST Final Result CLINICAL HISTORY: Acute abdominal pain, nonlocalized ORDERING PHYSICIAN: YARI SOLIMAN COMPARISON: None. TECHNIQUE: Helical axial CT imaging through the abdomen and pelvis was performed without IV contrast. Coronal and sagittal reformatted images were also performed. This exam was performed using the ALARA (As Low As Reasonably Achievable) principle. FINDINGS: The included lung bases are clear. The heart size is within normal limits. The osseous structures are intact. No calcified gallstones or abnormal biliary dilatation is seen. There is some respiratory motion which partially limits this exam. Calcified granulomata are noted within the liver and spleen. No urolithiasis or hydronephrosis is demonstrated. No gross focal lesion is identified within the unenhanced pancreas, adrenal glands and kidneys. No abnormal urinary bladder wall thickening is noted. The prostate gland size is within normal limits. Colonic diverticulosis is present. Within the sigmoid colon, there is a segment of colonic wall thickening in the presence of an inflamed diverticulum with surrounding pericolonic fat stranding. No abscess or free air is seen. No evidence for perforation. There is no evidence for bowel obstruction. The appendix is unremarkable. No adenopathy is observed. IMPRESSION CT findings consistent with acute sigmoid diverticulitis without evidence for abscess or perforation. Old granulomatous disease. RL [id number] AFC: [id number] HS: Y Lab Results: Lab Results CBC WITH DIFF - Abnormal Result Value Ref Range WBC 13.14 (*) 4.20 - 10.70 10*3/?L RBC 4.94 4.26 - 5.52 10*6/?L HGB 15.4 12.2 - 16.4 g/dL HCT 43.7 38.4 - 49.3 % MCV 88.5 81.7 - 95.6 fL MCH 31.2 26.1 - 32.7 pg MCHC 35.2 (*) 31.2 - 35.0 g/dL RDW-SD 41.6 38.5 - 51.6 fL RDW-CV 12.9 12.1 - 15.4 % PLT 171 150 - 328 10*3/?L MPV 10.3 9.8 - 13.0 fL NRBC/100 WBC 0.0 0.0 - 10.0 /100 WBCs NRBC x10^3 <0.01 10*3/?L GRAN MAT (NEUT) % 76.1 % IMM GRAN % 0.20 % LYMPH % 12.4 % MONO % 10.9 % EOS % 0.2 % BASO % 0.2 % GRAN MAT x10^3(ANC) 10.00 (*) 1.99 - 6.95 10*3/uL IMM GRAN x10^3 0.03 0.00 - 0.06 10*3/uL LYMPH x10^3 1.63 1.09 - 3.23 10*3/uL MONO x10^3 1.43 (*) 0.36 - 1.02 10*3/uL EOS x10^3 0.03 (*) 0.06 - 0.53 10*3/uL BASO x10^3 <0.03 0.01 - 0.09 10*3/uL URINALYSIS - Abnormal APPEARANCE Clear Clear COLOR Yellow Yellow PH 7.0 4.8 - 8.0 SP GRAVITY 1.013 1.003 - 1.030 GLU U QUAL Normal Normal BLOOD 1+ (*) Negative KETONES 5 mg/dL (*) Negative PROTEIN Negative Negative UROBILIN Normal Normal BILIRUBIN Negative Negative NITRITE Negative Negative LEUK SUSANNA Negative Negative RBC/HPF 8 (*) 0 - 3 HPF WBC/HPF 0 0 - 5 HPF BACTERIA Negative Negative MUCOUS Slight (*) Negative LPF LIPASE - Normal LIPASE 40 0 - 220 U/L URINE DRUG (IMMUNOASSAY) - COMPREHENSIVE DRUG SCREEN - Normal AMPHET Negative Negative TWYLA U Negative Negative BENZO U Negative Negative Cocaine Metabolite Negative Negative METHADONE Negative Negative OPIATES Negative Negative PCP Negative Negative THC Negative Negative COMP. METABOLIC PANEL (52939) NA 135 135 - 145 mmol/L K 4.1 3.5 - 5.0 mmol/L CL 99 98 - 108 mmol/L CO2 TOTAL 29 23 - 31 mmol/L AGAP 7 2 - 16 BUN 18 7 - 23 mg/dL GLUCOSE 101 70 - 110 mg/dL CREATININE 1.07 0.60 - 1.25 mg/dL TOTAL BILI 0.8 0.1 - 1.1 mg/dL CALCIUM 9.1 8.6 - 10.6 mg/dL T PROTEIN 7.9 6.3 - 8.2 g/dL ALBUMIN 4.6 3.5 - 5.0 g/dL ALK PHOS 51 34 - 122 U/L ALTv 32 5 - 50 U/L AST(SGOT) 37 13 - 40 U/L eGFR 72.9 mL/min/1.73m2 EKG: If EKG completed, see Procedure Note. Orders and Treatments: Orders Placed This Encounter Procedures CT ABDOMEN PELVIS WO CONTRAST Complete Metabolic Panel CBC with Differential Lipase, Serum Urinalysis DRUG PANEL 2 URINE Orders Placed This Encounter Medications NaCl 0.9% (NS) IV infusion 1,000 mL ondansetron (ZOFRAN (PF)) injection 4 mg morpHINE (4 mg/mL) injection 4 mg metroNIDAZOLE (FLAGYL) tablet 500 mg levoFLOXacin (LEVAQUIN) tablet 500 mg First Provider Eval: ED Events Date/Time Event User Comments 06/19/232355 Medical Screening Begins YARI SOLIMAN -- 06/19/232355 First Provider Evaluation YARI SOLIMAN -- No notes of EC Admission Criteria type on file. ED COURSE ED Course as of 06/20/23 0210 SunJun 20, 2023 014 RBC/HPF(!): 8 [KV] 0144 KETONES(!): 5 mg/dL [KV] 4 BLOOD(!): 1+ [KV] TuJun 19, 2023 235 EOS x10^3(!): 0.03 [KV] 2354 MONO x10^3(!): 1.43 [KV] 2354 GRAN MAT x10^3(ANC)(!): 10.00 [KV] 2354 MCHC(!): 35.2 [KV] 3 WBC x10^3(!): 13.14 [KV] 3 LIPASE: 40 [KV] 2353 MUCOUS(!): Slight [KV] 3 RBC/HPF(!): 8 [KV] 3 KETONES(!): 5 mg/dL [KV] 3 BLOOD(!): 1+ [KV] ED Course User Index [KV] Yari Soliman NP Diagnosis/Impression as of 06/20/23 021 Right lower quadrant abdominal pain Diverticulitis Procedures: Procedures MDM: Medical Decision Making Viridiana Shetty is a 52 y/o M with PMHX: HTN who presents with acute onset of diffuse abdominal pain and nausea DDX: Bowel Obstruction Appendicitis Pancreatitis Diverticulitis Mesenteric Ischemia Labs: wbc 13.4 Meds received in ER: Morphine 4 mg iv x 1 dose, Zofran 4 mg iv x 1 dose, Levaquin 500 mg po x 1 dose, Flagyl po x 1 dose DC DX: Acute Diverticulitis w/o evidence of abscess or performation POC: DC to home. RX: Flagyl 500 mg po tid x 7 days (#21), Levaquin 500 mg po qd x 7 days, Tramadol 50 mg po q 6 hrs prn - pain (#15) F/U outpatient with PCP for post-ER evaluation and treatment Imaging: CT ABD/PEL w/o Contrast: IMPRESSION CT findings consistent with acute sigmoid diverticulitis without evidence for abscess or perforation. Old granulomatous disease. Amount and/or Complexity of Data Reviewed Labs: ordered. Decision-making details documented in ED Course. Radiology: ordered and independent interpretation performed. Decision-making details documented in ED Course. Risk Prescription drug management. Parenteral controlled substances. Flowsheet Documentation: Scoring Tools: No data recorded Disposition/Condition: ED Disposition None Discharge Medications: Patient's Medications START taking these medications No medications on file CONTINUE taking these medications which have NOT CHANGED AMLODIPINE 5 MG TABLET Take 1 tablet by mouth in the morning. START taking Modified Medications as Prescribed No medications on file STOP taking these medications No medications on file Follow-up: Electronically signed by: Yari Soliman NP 06/20/230 Associated attestation - Jayla Thomas MD - 06/20/2023 2:20 AM CDT Addendum I was personally available for consultation in the Emergency Department during this encounter and patient evaluation by ANDRES Soliman. [facility]
[2025-03-02 14:46] LABS: Absolute Eosinophils 0.1 K/uL (0-0.5); Absolute Lymphocytes (CBC) 0.6 K/uL (0.7-4.9); Absolute Monocytes 0.7 K/uL (0.1-1.3); Absolute Neutrophil 2.6 K/uL (1.8-8.0); Basophils % 0.5 % (0-1.3); Eosinophils % 1.9 % (0-4.4); Hematocrit 41.4 % (39.6-49.0); Hemoglobin 14.7 g/dL (13.6-17.9); Lymphocytes % 14.6 % (15.3-44.8); MCH 31.2 pg (27.0-35.0); MCHC 35.6 g/dL (32.0-36.0); MCV 87.6 fL (80-100); MPV 8.2 fL (7.6-11.3); Monocytes % 17.1 % (3.3-12.3); Neutrophils % 65.9 % (41.7-73.7); Nucleated Red Blood Cells % 0.7 % (0-0); Platelets 135 thou/uL (152-406); RBC Red Blood Cell Count 4.73 M/uL (4.33-5.43); Red Cell Distribution Width 13.6 % (12.1-15.2)
[2025-03-02] MEDS ORDERED: NA CHLORIDE 0.9% 1,000 ML ONE (14:53)
[2025-03-02 15:05] LABS: Anion Gap 9.8 mEq/L (5.0-15.0); Potassium 3.8 mEq/L (3.5-5.1); Troponin High Sensitivity 10.5 pg/mL (<58.9)
--- NOTE | 2025-03-02 15:13 | RAD REPORT ---
EXAM: Chest Single View HISTORY: 54 years Male CHEST PAIN COMPARISON: None. FINDINGS: LUNGS/PLEURA: The lungs are clear. No pleural effusions or pneumothorax. No pulmonary edema. CARDIAC/MEDIASTINUM: The cardiac silhouette is within normal limits. UPPER ABDOMEN: No significant abnormality. BONES: No acute abnormality. LINES/TUBES/OTHER: N/A IMPRESSION: No evidence of acute cardiopulmonary disease.
[2025-03-02] MEDS ORDERED: KETOROLAC 30 MG/ML INJ ONE (15:32)
[2025-03-02] MEDS ORDERED: ONDANSETRON 4 MG/2 ML VIAL ONE (15:32)
--- NOTE | 2025-03-02 19:13 | EDPHYS ---
Physician Documentation [facility] Name: Enrike Whitaker Jr Age: 54 yrs Sex: Male : 1970 Arrival Date: 03/02/2025 Time: 14:16 Bed 5 Private MD: ED Physician Brandy Castillo HPI: 03/02 15:02 This 54 yrs old Male presents to ER via Ambulatory with complaints of Near Syncope, ms3 Chest Pain, Heat Exposure. 15:02 54-year-old male with past medical history of ADHD, asthma, anxiety [place] [facility] [place] near syncope. 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 Patient states he hydrated over the weekend and then today was on the roof and became disoriented and lightheaded with cramping. Patient states he drank Pedialyte without change in his symptoms.. Historical: - Allergies: 14:20 No Known Allergies; aa5 - Home Meds: 14:20 Klonopin 0.5 mg Oral tab 1 tab 2 times per day [Active]; Adderall XR Oral [Active]; aa5 - PMHx: 14:20 ADHD; Asthma; Anxiety; aa5 - Immunization history:: Adult Immunizations unknown. - Infectious Disease History:: Denies. - Social history:: Smoking status: Patient denies any tobacco usage or history of. ROS: 15:02 Constitutional: Negative for fever, and chills. Respiratory: Negative for shortness of ms3 breath, cough, wheezing, and pleuritic chest pain, Abdomen/GI: Negative for abdominal pain, nausea, vomiting, diarrhea, and constipation, MS/Extremity: Negative for injury and deformity, Skin: Negative for injury, rash, and discoloration, 15:02 Cardiovascular: Positive for chest pain, 15:02 Neuro: Positive for Lightheadedness, Exam: 15:02 Constitutional: This is a well developed, well nourished patient who is awake, alert, ms3 and in no acute distress. Cardiovascular: Regular rate and rhythm with a normal S1 and S2. No gallops, murmurs, or rubs. Normal PMI, no JVD. No pulse deficits. Respiratory: Lungs have equal breath sounds bilaterally, clear to auscultation and percussion. No rales, rhonchi or wheezes noted. No increased work of breathing, no retractions or nasal flaring. Abdomen/GI: Soft, non-tender, with normal bowel sounds. No distension or tympany. No guarding or rebound. No evidence of tenderness throughout. Skin: Warm, dry with normal turgor. Normal color with no rashes, no lesions, and no evidence of cellulitis. MS/ Extremity: Pulses equal, no cyanosis. Neurovascular intact. Full, normal range of motion. 15:20 ECG was reviewed by the Attending Physician. ms3 Vital Signs: 14:19 BP 147 / 96; Pulse 113; Resp 16 S; Temp 98.5(O); Pulse Ox 95% on R/A; Weight 117.93 kg aa5 (R); Height 5 ft. 11 in. (R); Pain 9/10; 15:00 BP 174 / 131; Pulse 94; Resp 11; Pulse Ox 93% ; bp 16:00 BP 181 / 142; Pulse 85; Resp 16; Pulse Ox 93% ; bp 18:47 BP 156 / 100; Pulse 85; Resp 15; Pulse Ox 98% ; bp 14:19 Body Mass Index 36.26 (117.93 kg, 180.34 cm) aa5 14:19 Pain Scale: Adult aa5 MDM: 14:25 Medical Screening Exam initiated ms3 15:02 Differential Diagnosis: Heat exhaustion vs electrolyte abnormality vs DE. ms3 18:14 Transition of care: After a detail discussion of the patient's case, care is ms3 transferred to Brandy Castillo MD. 19:11 Data reviewed: vital signs, nurses notes, lab test result(s), cardiac enzymes, CBC, gb1 electrolytes. 19:13 ED course: 54-year-old male with near syncope and transient heat exhaustion has normal gb1 labs I will discharge him home with explicit return precautions for no alcohol and no excessive heat for 48 hours. Patient is set to hydrate and been instructed on how to rehydrate with electrolytes. He is compliant with his plan of care at discharge.. 03/02 14:30 Order name: Basic Metabolic Panel; Complete Time: 15:15 ss 03/02 14:30 Order name: CBC with Diff; Complete Time: 15:15 ss 03/02 14:30 Order name: Troponin HS; Complete Time: 15:15 ss 03/02 14:44 Order name: Creatine Phosphokinase; Complete Time: 15:15 EDMS 03/02 15:20 Order name: D-Dimer; Complete Time: 18:17 ms3 03/02 18:19 Order name: Troponin High Sensitivity; Complete Time: 19:06 ms3 03/02 14:30 Order name: XRAY Chest (1 view); Complete Time: 15:15 ss 03/02 14:30 Order name: Cardiac monitoring; Complete Time: 14:30 ss 03/02 14:30 Order name: EKG - Nurse/Tech; Complete Time: 14:30 ss 03/02 14:30 Order name: IV Saline Lock; Complete Time: 14:30 ss 03/02 14:30 Order name: Labs collected and sent; Complete Time: 14:30 ss 03/02 14:30 Order name: O2 Per Protocol; Complete Time: 14:30 ss 03/02 14:30 Order name: O2 Sat Monitoring; Complete Time: 14:30 ss 03/02 15:16 Order name: Repeat Cardiac Enzymes at: 4:15 PM- Troponin only; Complete Time: 16:18 ms3 EC:20 Rate is 113 beats/min. Rhythm is regular. QRS [place] is Normal. PA interval is normal. ms3 QRS interval is normal. Clinical impression: Sinus tachycardia. Interpreted by me. Reviewed by me. Administered Medications: 14:57 Drug: NS 0.9% IV 1000 ml IV at 1 bolus Per protocol; to be given as a bolus over 60 bp minutes Route: IV; Rate: 1 bolus; Site: right wrist; 15:35 Drug: Ketorolac IVP 10 mg 10 mg IVP once Route: IVP; Site: right wrist; aa5 15:49 Follow up: Response: No adverse reaction aa5 15:35 Drug: Ondansetron IVP 4 mg IVP once; over 2 minutes Route: IVP; Site: right wrist; aa5 15:48 Follow up: Response: No adverse reaction aa5 Disposition Summary: 03/02/25 19:12 Discharge Ordered Notes: Location: Home gb1 Condition: Stable gb1 Diagnosis - Heat fatigue, transient gb1 Followup: gb1 - With: Private Physician - When: - Reason: If symptoms return, Recheck today's complaints Discharge Instructions: - Discharge Summary Sheet gb1 - Preventing Heat Exhaustion, Adult gb1 Forms: - Medication Reconciliation Form gb1 - Antibiotic Education gb1 - Prescription Opioid Use gb1 - Patient Portal Instructions gb1 - Leadership Thank You Letter gb1 Signatures: Dispatcher [employer] EDMS Lilo Aguilar, RN RN aa5 Juliana Kong RN RN ss Antolin Grant, RN RN bp Graham Garcia, DO ms3 Brandy Castillo MD MD gb1 Corrections: (The following items were deleted from the chart) 14:30 14:30 Chest Single View+RAD.RAD.BRZ ordered. EDMS EDMS 14:44 14:34 CREATINE PHOSPHOKINASE+C.LAB.BRZ ordered. EDMS EDMS
--- NOTE | 2025-03-02 19:13 | ER ---
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 aa5 Pt c/o cramping all over body and c/o left sided chest pain and headache. 14:19 Coronavirus screen: At this time, the client does not indicate any symptoms associated aa5 with coronavirus-19. Ebola Screen: Patient denies travel to an Ebola-affected area in the 21 days before illness onset. Initial Sepsis Screen: Does the patient meet any 2 criteria? HR > 90 bpm. Does the patient have a suspected source of infection? No. Patient's initial sepsis screen is negative. Risk Assessment: Do you want to hurt yourself or someone else? Patient reports no desire to harm self or others. Onset of symptoms was March 02, 2025. 14:19 Acuity: OCTAVIO 3 aa5 14:19 Method Of Arrival: Ambulatory aa5 Triage Assessment: 14:30 General: Appears in no apparent distress. obese, Behavior is cooperative, appropriate bp for age, anxious. Pain: Denies pain. EENT: No deficits noted. Neuro: Reports NEAR SYNCOPE. Cardiovascular: Rhythm is sinus tachycardia. Respiratory: No deficits noted. GI: No signs and/or symptoms were reported involving the gastrointestinal system. : No signs and/or symptoms were reported regarding the genitourinary system. Derm: No deficits noted. Musculoskeletal: No deficits noted. Historical: - Allergies: 14:20 No Known Allergies; aa5 - Home Meds: 14:20 Klonopin 0.5 mg Oral tab 1 tab 2 times per day [Active]; Adderall XR Oral [Active]; aa5 - PMHx: 14:20 ADHD; Asthma; Anxiety; aa5 - Immunization history:: Adult Immunizations unknown. - Infectious Disease History:: Denies. - Social history:: Smoking status: Patient denies any tobacco usage or history of. Screenin:30 [facility] ED Fall Risk Assessment (Adult) History of falling in the last 3 months, bp including since admission No falls in past 3 months (0 pts) Confusion or Disorientation No (0 pts) Intoxicated or Sedated No (0 pts) Impaired Gait No (0 pts) Mobility Assist Device Used No (0 pt) Altered Elimination No (0 pt) Score/Fall Risk Level 0 - 2 = Low Risk Oriented to surroundings. 16:30 Abuse screen: Denies threats or abuse. Denies injuries from another. Nutritional bp screening: No deficits noted. Tuberculosis screening: No symptoms or risk factors identified. Assessment: 14:30 General: Appears in no apparent distress. Behavior is cooperative, appropriate for age, bp anxious. Pain: Complains of pain in chest Pain does not radiate. Pain began 1 hour ago. 16:30 Reassessment: Patient appears in no apparent distress at this time. Patient is alert, bp oriented x 3, equal unlabored respirations, skin warm/dry/pink. 18:48 Reassessment: REPEAT TROP SENT. bp 19:37 Reassessment: Patient appears in no apparent distress at this time. Patient and/or jb4 family updated on plan of care and expected duration. Pain level reassessed. Patient is alert, oriented x 3, equal unlabored respirations, skin warm/dry/pink. Vital Signs: 14:19 BP 147 / 96; Pulse 113; Resp 16 S; Temp 98.5(O); Pulse Ox 95% on R/A; Weight 117.93 kg aa5 (R); Height 5 ft. 11 in. (R); Pain 9/10; 15:00 BP 174 / 131; Pulse 94; Resp 11; Pulse Ox 93% ; bp 16:00 BP 181 / 142; Pulse 85; Resp 16; Pulse Ox 93% ; bp 18:47 BP 156 / 100; Pulse 85; Resp 15; Pulse Ox 98% ; bp 14:19 Body Mass Index 36.26 (117.93 kg, 180.34 cm) aa5 14:19 Pain Scale: Adult aa5 ED Course: 14:19 Patient arrived in ED. aa5 14:19 Arm band placed on. aa5 14:20 Graham Garcia DO is Attending Physician. ms3 14:21 Triage completed. aa5 14:22 Lilo Aguilar, RN is Primary Nurse. aa5 14:30 EKG done, by ED staff, reviewed by Graham Garcia DO. aa5 14:34 Initial lab(s) drawn, by ma, sent to lab. Inserted saline lock: 20 gauge in right aa5 wrist, using aseptic technique. Blood collected. Flushed with 10 mL NS. 14:45 XRAY Chest (1 view) In Process Unspecified. EDMS 16:30 Patient has correct armband on for positive identification. Client placed on continuous bp cardiac and pulse oximetry monitoring. NIBP monitoring applied. 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 Pulse ox on. NIBP on. 18:01 Attending Physician role handed off by Graham Garcia DO gb1 18:01 Brandy Castillo MD is Attending Physician. gb1 19:37 Provided Education on: discharge instructions.. jb4 19:38 No provider procedures requiring assistance completed. IV discontinued, intact, jb4 bleeding controlled, No redness/swelling at site. Pressure dressing applied. Patient maintains SpO2 saturation greater than 95% on room air. Administered Medications: 14:57 Drug: NS 0.9% IV 1000 ml IV at 1 bolus Per protocol; to be given as a bolus over 60 bp minutes Route: IV; Rate: 1 bolus; Site: right wrist; 15:35 Drug: Ketorolac IVP 10 mg 10 mg IVP once Route: IVP; Site: right wrist; aa5 15:49 Follow up: Response: No adverse reaction aa5 15:35 Drug: Ondansetron IVP 4 mg IVP once; over 2 minutes Route: IVP; Site: right wrist; aa5 15:48 Follow up: Response: No adverse reaction aa5 Medication: 19:37 VIS not applicable for this client. jb4 Outcome: 19:12 Discharge ordered by . gb1 19:38 Discharged to home ambulatory, jb4 19:38 Condition: stable 19:38 Discharge instructions given to patient, Instructed on discharge instructions, follow up and referral plans. Demonstrated understanding of instructions, follow-up care, 19:39 Patient left the ED. jb4 Signatures: Dispatcher [employer] EDDC Lilo Aguilar, RN RN aa5 Kamlesh Boone, AJ ROCHA jb4 Antolin Grant, AJ RN bp Graham Garcia DO DO ms3 Brandy Castillo MD MD gb1
[2025-03-02 19:50] VITALS: TEMP 98.5
[2025-03-02 19:55] VITALS: BP 156/100; O2SAT 98
== END 2025-03-02 19:39 | disposition home or self-care (01) ==
LOC: ER 14:16
DX: T67.6XXA Heat fatigue, transient, initial encounter (principal); F41.9 Anxiety disorder, unspecified
CPT/HCPCS: 93005; 85025; 80048; 36415; 82550; 85379; 84484 ×2; 71045; 96375; 96374; 99285; J2405; J7030